=== PATIENT | female | born 1935 | race Caucasian/White ===

== ENCOUNTER → 2023-08-28 07:30 | Day surgery (SDC) | payer MEDICARE, OTHER, SELFPAY ==
[2023-08-28 08:05] VITALS: BMI 29.9
--- NOTE | 2023-08-28 08:41 | ITS.CL.CARDI ---
[facility] - Cardioversion
Cardioversion
Procedure Report:
Date of Procedure:
Procedure: Cardioversion
Indication: Symptomatic atrial fibrillation
Performing Physician: Donovan Santoyo MD
Technique: The patient was brought to the holding area. Signed informed consent was obtained. A time out was called and performed. The patient was anesthetized by the anesthesia service. Anticoagulation status was reviewed and appropriate. R2 pads
were placed anteriorly and posteriorly. A 200 J synchronized biphasic shock restored normal sinus rhythm without significant bradycardia. There were no complications.
Conclusion: Uncomplicated cardioversion from atrial fibrillation to sinus rhythm.
Recommendation: Routine post cardioversion care. Continue longterm anticoagulation.
== END ==
LOC: CATH 07:30
PROVIDERS: ATTENDING PHYSICIAN Internal Medicine Cardiovascular Disease; FAMILY PHYSICIAN Family Medicine; OTHER PHYSICIAN Internal Medicine Cardiovascular Disease
DX: I48.91 Unspecified atrial fibrillation (principal); I48.4 Atypical atrial flutter; I10 Essential (primary) hypertension; E78.00 Pure hypercholesterolemia, unspecified; I34.0 Nonrheumatic mitral (valve) insufficiency; Z87.891 Personal history of nicotine dependence; Z79.01 Long term (current) use of anticoagulants
CPT/HCPCS: 92960; 93005

== ENCOUNTER → 2023-10-22 14:49 | Outpatient (REF) | payer MEDICARE, OTHER, SELFPAY | LOC: HWRCS 14:49 | PROVIDERS: ATTENDING PHYSICIAN Internal Medicine Cardiovascular Disease; FAMILY PHYSICIAN Family Medicine | DX: I48.91 Unspecified atrial fibrillation (principal) | CPT/HCPCS: 93306 ==

== ENCOUNTER → 2023-12-03 09:28 | Day surgery (SDC) | payer MEDICARE, OTHER, SELFPAY ==
[2023-12-03 10:52] VITALS: BMI 30.7
--- NOTE | 2023-12-03 11:23 | ITS.CL.CARDI ---
Addendum entered and electronically signed by Eduardo Chen MD 12/03/23 15:47:
Spoke with Dr. Antunez and patient after attempted cardioversion. She had sinus rhythm last for a few minutes then recur. As such we will plan stop tikosyn and increase metoprolol to 100mg am/50mg pm and have her back to the office to discuss
initiation of amiodarone after tikosyn washout and subsequent cardioversion. Alernative could be a pace and ablate strategy if amiodarone/cv does not work. Our office will call in the new dose of metoprolol and arrange an office visit.
Original Note:
Reception - Cardioversion
Cardioversion
Procedure Report:
Date of Procedure: 12/03/2023
Procedure: Cardioversion.
Indication: Symptomatic atrial fibrillation.
Performing Physician: Patsy Antunez MD
Technique: The patient was brought to the holding area. Signed informed consent was obtained. A time out was called and performed. The patient was sedated by a member of the anesthesia service. Anticoagulation status was reviewed and was
appropriate. R-2 pads were placed anteriorly and posteriorly. A 200 J synchronized biphasic shock restored normal sinus rhythm without significant bradycardia. There were no complications.
Conclusion: Uncomplicated cardioversion from atrial fibrillation to sinus rhythm.
Recommendation: Routine post cardioversion care. Continue mcc anticoagulation.
cc: Dr Eduardo Chen
== END ==
LOC: CATH 09:28
PROVIDERS: ATTENDING PHYSICIAN Internal Medicine Cardiovascular Disease; FAMILY PHYSICIAN Family Medicine
DX: I48.91 Unspecified atrial fibrillation (principal); Z79.01 Long term (current) use of anticoagulants; I48.4 Atypical atrial flutter; I35.0 Nonrheumatic aortic (valve) stenosis
CPT/HCPCS: 92960; 93005

== ENCOUNTER → 2024-01-13 07:05 | Day surgery (SDC) | payer MEDICARE, OTHER, SELFPAY ==
[2024-01-13 08:05] VITALS: BMI 30.7
--- NOTE | 2024-01-13 09:09 | ITS.CL.CARDI ---
[facility] - Cardioversion
Cardioversion
Procedure Report:
Procedure: Direct current electrical cardioversion
Pre-operative diagnosis: Persistent atrial fibrillation
Post-operative diagnosis: Persistent atrial fibrillation status post DC cardioversion to sinus rhythm
Anesthesia: MAC
Attending Physician: Jose Hernandez MD
Procedure Description: The patient was brought to the electrophysiology laboratory in the fasting state. Adherence to anticoagulation regimen was confirmed. Informed consent was obtained from the patient prior to the start of the procedure.
Electrodes were placed on the patient and connected to an external defibrillator. Monitoring of blood pressure, ECG tracings, and pulse oximetry was initiated. The pads were applied to the patient in the anterior and posterior positions. The patient
was sedated by the anesthesiologist. A 200 joule biphasic synchronized shock was delivered to the patient under MAC anesthesia. Sinus rhythm was successfully restored. The patient recovered uneventfully from MAC anesthesia. There were no immediate
post-procedure complications. The patient left the lab in good condition. The attending physician was present throughout the entire procedure.
Impression: Successful direct current cardioversion with spiritism of sinus rhythm after one 200 joule biphasic synchronized shock.
== END ==
LOC: CATH 07:05
PROVIDERS: ATTENDING PHYSICIAN Internal Medicine Cardiovascular Disease; FAMILY PHYSICIAN Family Medicine; OTHER PHYSICIAN Internal Medicine Cardiovascular Disease
DX: I48.19 Other persistent atrial fibrillation (principal); I48.4 Atypical atrial flutter; Z79.899 Other long term (current) drug therapy; I10 Essential (primary) hypertension; E78.00 Pure hypercholesterolemia, unspecified; J43.9 Emphysema, unspecified; Z87.891 Personal history of nicotine dependence
CPT/HCPCS: 92960; 93005

== ENCOUNTER 2024-01-14 15:46 | Inpatient (IN) | payer MEDICARE, OTHER, SELFPAY ==
[2024-01-14] VITALS (17 sets, daily range): BP systolic 115–149; BP diastolic 63–94; PULSE 2–60; BMI 18.7
[2024-01-14 11:49] LABS: % Basophils 0.4 % (0-2); % Eosinophils 0.6 % (0-6); % Immature Granulocytes 0.4 % (0-0.5); % Lymphocytes 9.8 % (20.5-51.1); % Monocytes 10.3 % (1.7-9.3); % Neutrophils 78.5 % (42.2-75.2); Absolute Eosinophils 0.1 10^3/uL (0-0.7); Absolute Monocytes 1.1 10^3/uL (0.1-0.6); Absolute Neutrophils 8.3 10^3/uL (1.4-6.5); Hematocrit 41.2 % (37.0-47.0); Mean Corp Hgb Conc. 31.6 g/dL (33.0-37.0); Mean Corpuscular Hgb 32.8 pg (27.0-31.0); Mean Platelet Volume 10.8 fL (7.4-10.4); Nucleated Red Blood Cells % 0 %; Platelet Count 144 10^3/uL (130-400); Red Blood Cell Count 3.96 10^6/uL (4.20-5.40); Red Cell Dist. Width 13.5 % (11.5-14.5); White Blood Cell Count 10.5 10^3/uL (4.8-10.8)
--- NOTE | 2024-01-14 11:53 | ED.GENMED ---
History of Present Illness
General
Chief Complaint: Breathing Problem
Time Seen by Provider: 01/14/24 11:28
History of Present Illness
History of Present Illness:
Patient is a 88-year-old woman with history of ILD, A-fib on anticoagulation, hypertension, hyperlipidemia, lower extremity edema presenting to the emergency department shortness of breath. Patient states that yesterday she had a routine
cardioversion which went well. Last night she had significant orthopnea that worsened this morning. She is having a hard time breathing. She is unsure if she has history of heart failure but is compliant with Lasix. She denies any chest pain.
No fevers or chills. No cough. No nausea no vomiting. No back pain. She does not feel lightheaded or dizzy. Per chart review she did have an echo in September that did show a normal EF.
Past History
Past History
ED Past Medical History: Arrthythmia (Atrial fib), HTN, Hypercholesterolemia and Other (Arthritis)
ED Past Surgical History: Cardiac (Cardioversion) and Orthopedic (José knee replacements. José Hip replacements. Lumbar spine fusion)
Social History
Tobacco: Former smoker
Alcohol: Daily
Drug: None
Personal:
Living: with family
Employment: Retired
Family History
Family History: Other (Noncontributory)
Phy Exam
Physical Exam
Physical Exam:
General: Moderate respiratory distress
HEENT: Moist oral mucosa, extraocular movements intact
Respiratory: Moderate respiratory distress, tachypneic, crackles in all lung childers
Cardio: Regular rate and rhythm
Abdomen: Soft nondistended
Extremities: Bilateral lower extremity edema, palpable distal pulses bilaterally
Scores
Heart Failure Risk
Heart Failure Risk Score: Yes
History of Stroke or TIA: No
History of intubation for respiratory distress: No
Heart rate on ED arrival >/= 110: No
SaO2 <90% on arrival on room air: Yes
HR >/=110 during 3min walk test (or too ill to perform test): Yes
ECG has acute ischemic changes: No
Urea >/=12mmol/L (BUN 33.6mg/dL): Yes
Serum CO2>/=35mmol/L: Yes
Troponin I or T elevated to SD Level (0.4mg/dL): No
NT-proBNP >/=5,000ng/L (5,000pg/ml): No
HF Risk Score: 6
Admission Status: VERY HIGH RISK 55.3% Consider admission to hospital
Course
Orders/Labs/Results
Orders:
Orders
01/14/24
Electrocardiogram (*1) Stat
Reason for Study: Chest Pain
Comment: DONE
01/14/24 11:17
EKG [Electrocardiogram (*1)] Urgent
Reason for Study: Shortness of Breath
EKG- Treatment ONCE
01/14/24 11:37
Cardiac Monitoring- Treatment ONCE
EKG- Treatment ONCE
IV Insert/Care/Rem.- Treatment PRN
O2 Therapy [RESP] Urgent
Titrate/Wean O2 to maintain O2 sat greater than (%): 90
Special Instructions: Maintain sats >/=90%
Pulse Ox/spot Check [RESP] Urgent
Quantity: 1
Special Instructions: ON ROOM AIR
01/14/24 11:38
Portable Chest Xray [CR Chest Portable - 1 View] Urgent
Comment:
Reason For Exam: sob
Reason Study Needs to be Portable: Unable to Transport
01/14/24 11:41
Basic Metabolic Panel Urgent
Complete Blood Count/With Diff Urgent
Pro-BNP [NT-proBNP] Urgent
Troponin I Urgent
01/14/24 11:47
Venous Blood Gas Urgent
%Oxygen/Room Air: 2 liters nc
01/14/24 12:10
Ipratropium/Albuterol Sulfate [Duoneb] 3 ml .ROUTE .STK-MED ONE
01/14/24 12:20
Ipratropium/Albuterol Sulfate [Duoneb] 3 ml INH R NOW ONE
01/14/24 12:21
Bipap [RESP] Stat
Patient to use own unit?: No
Inspiratory Pressure (cm H2O): 12
Expiratory Pressure (cm H2O): 5
Oxygen Liter Flow: 5
01/14/24 12:44
Add On- LAB Urgent
Tests Added?: magnesium
01/14/24 12:54
Venous Blood Gas Urgent
%Oxygen/Room Air: 5L Bipap
01/14/24 13:14
Magnesium Urgent
Comment: CAN NOT BE ADDED ON DUE TO HEMOLYSIS
Abnormal Lab Results
01/14/24 01/14/24 01/14/24
11:41 11:47 12:54
RBC 3.96 L 10^6/uL
(4.20-5.40)
MCV 104.0 H fL
(81.0-99.0)
MCH 32.8 H pg
(27.0-31.0)
MCHC 31.6 L g/dL
(33.0-37.0)
MPV 10.8 H fL
(7.4-10.4)
Absolute Neuts (auto) 8.3 H 10^3/uL
(1.4-6.5)
Absolute Lymphs (auto) 1.0 L 10^3/uL
(1.2-3.4)
Absolute Monos (auto) 1.1 H 10^3/uL
(0.1-0.6)
Neutrophils % 78.5 H %
(42.2-75.2)
Lymphocytes % 9.8 L %
(20.5-51.1)
Monocytes % 10.3 H %
(1.7-9.3)
VBG pH 7.24 L 7.26 L
(7.32-7.43) (7.32-7.43)
VBG pCO2 81 H* mmHg 73 H* mmHg
(35-48) (35-48)
VBG pO2 60 H mmHg
(30-50)
VBG HCO3 34.7 H mmol/L 32.8 H mmol/L
(22-27) (22-27)
BUN 39 H mg/dl
(7-17)
Creatinine 1.1 H mg/dL
(0.6-1.0)
Glucose 140 H mg/dl
(70-99)
01/14/24 11:41
01/14/24 11:41
Vital Signs
Initial and Last Documented VS:
Initial Vital Signs
Temp Pulse Resp BP Pulse Ox
98.4 F 58 24 149/79 92
01/14/24 11:16 01/14/24 11:16 01/14/24 11:16 01/14/24 11:16 01/14/24 11:16
Last Documented Vital Signs
Temp Pulse Resp BP Pulse Ox
98.4 F 47 16 142/90 99
01/14/24 11:16 01/14/24 12:30 01/14/24 12:30 01/14/24 12:02 01/14/24 12:30
MDM/Problems Addressed
Differential Diagnosis Includes:
Patient is a 88-year-old woman with history of A-fib on anticoagulation who was cardioverted yesterday, lower extremity edema on Lasix presenting to the emergency department with shortness of breath that worsened today. Vitals here notable for
requiring nasal cannula. She is tachypneic. Exam does show crackles in all lung childers as well as bilateral lower extremity edema. Concern for new onset heart failure versus cardiac arrhythmia versus atypical ACS. History and exam not consistent
with PE or pneumonia. Bedside echo does show significant B-lines. EF is slightly reduced. Portable chest x-ray with significant congestion bilaterally. Will trial BiPAP. Patient will need admission.
*Critical Care Note
Total Time (30-74mins, 75-104mins- exclusive of procedures): Not Applicable
Update Note
Update Note:
On reevaluation patient resting comfortably on BiPAP. She is pulling great tidal volumes. She does appear more comfortable. Blood work does show elevated BNP. Initial VBG does show hypercarbia as well as respiratory acidosis. Given the history
of possible COPD we will also trial DuoNeb.
Nursing notified of patient's heart rate was in the 30s. Repeat EKG does show sinus bradycardia with first-degree AV block. Blood pressure is normal she is mentating well we will continue to monitor.
On reevaluation patient is on BiPAP. She is able to speak in full sentences and looks much better from when she came in. Repeat VBG does show slight improvement. Discussed with hospitalist who accepted patient for admission.
ED Attending Note
-
Portions of this chart may have been created with voice recognition software.� Occasional wrong word or��sound alike� substitutions may have occurred due to the inherent limitations of voice recognition software.
Discharge Plan
Departure
Patient Disposition: Admit
Date of Disposition: 01/14/24
Time of Disposition: 13:36
Admit to doctor: adeel
Presentation/result/management discussed w/ accepting MD/DO: Hospitalist
Discharge Problem:
Pulmonary edema
Prescriptions:
No Action
simvastatin 20 MG tablet
20 mg PO QPM
losartan 100 MG tablet
100 mg PO DAILY
famotidine 20 MG tablet
20 mg PO QPM
Eliquis 5 MG tablet
5 mg PO BID
buprenorphine [Butrans] 20 MCG/HR patch weekly
1 patch topical SA
Patient Comments:
01/14/24 currently wearing
cetirizine 10 MG tablet
10 mg PO HS
venlafaxine 37.5 mg Capsule,Extended Release 24hr
37.5 mg PO DAILY
furosemide [Lasix] 20 mg Tablet
20 mg PO DAILY
PreserVision AREDS-2 250-90-40-1 mg Capsule
1 tab PO DAILY
magnesium oxide 500 MG tablet
500 mg PO DAILY
amiodarone 200 mg Tablet
200 mg PO DAILY
hydrocodone-acetaminophen 10-325 mg Tablet
1 tab PO Q4HPRN PRN (Reason: severe pain)
magnesium hydroxide [Milk of Magnesia] 400 mg/5 mL Suspension
2,400 mg PO DAILYPRN PRN (Reason: constipation)
Incruse Ellipta 62.5 mcg/actuation Blister With Device
1 inh INHALATION R DAILY
metoprolol succinate [Toprol XL] 50 mg Tablet Extended Release 24 Hr
100 mg PO DAILY
Referrals:
Shayy Jon DO [Family Provider] -
Interventions
Interventions:
*Risk Screen - Suicide Last Done: 01/14/24 11:29
*General Assessment Last Done: 01/14/24 11:29
*Neglect/Abuse Screening Last Done: 01/14/24 11:29
*ED COVID-19 Vaccine History Last Done: 01/14/24 11:29
ED- Cardiac Assessment Last Done: 01/14/24 11:51
ED- Pulmonary Assessment Last Done: 01/14/24 11:51
Discharge Date and Time
Print Language: PERSIAN
[2024-01-14 11:58] LABS: Venous Blood Gas B.E. 4.5 mmol/L (-4 to +4); Venous Blood Gas HCO3 34.7 mmol/L (22-27); Venous Blood Gas O2 Sat % 66.4 %; Venous Blood Gas pH 7.24 (7.32-7.43); Venous Blood Gas pO2 39 mmHg (30-50)
[2024-01-14 12:01] LABS: Venous Blood Gas pCO2 81 mmHg (35-48)
[2024-01-14 12:07] LABS: Blood Urea Nitrogen 39 mg/dl (7-17); Calcium 9.5 mg/dl (8.4-10.2); Carbon Dioxide 29 mmol/L (22-30); Chloride 99 mmol/L (98-107); Estimated Creatinine Clearance 29 ml/min; Glucose 140 mg/dl (70-99); Sodium 135 mmol/L (135-145); eGFR 48.94
[2024-01-14 12:12] LABS: NT-proBNP 4750 pg/ml; Troponin I < 0.012 ng/ml
[2024-01-14] MEDS: DUONEB 3 ML INH (12:20)
--- NOTE | 2024-01-14 12:32 | PHANOTE ---
med rec note- spoke to spouse for patient about Toprol xl and having two different rx with two different directions on file. he stated that this coming Friday patient has an appointment for cardiology to discus changing patient medication. so he
picked up both just incase his insurance would give him a hard time about filling her medication after Friday appointment. yesterday patient here at [facility] for cardio version and toprol xl changed to just toprol xl 100mg daily.
[2024-01-14 13:09] LABS: Venous Blood Gas B.E. 3.6 mmol/L (-4 to +4); Venous Blood Gas HCO3 32.8 mmol/L (22-27); Venous Blood Gas O2 Sat % 91.3 %; Venous Blood Gas pH 7.26 (7.32-7.43); Venous Blood Gas pO2 60 mmHg (30-50)
[2024-01-14 13:12] LABS: Venous Blood Gas pCO2 73 mmHg (35-48)
[2024-01-14 13:54] LABS: Magnesium 3.1 mg/dl (1.6-2.3)
--- NOTE | 2024-01-14 14:02 | W.PN.UPDATE ---
Addendum entered and electronically signed by Panchito Berrios MD 01/14/24 15:46:
After getting more history patient states that her symptoms have been going on for the past 1 month. Amiodarone was also started a month ago. Patient was also describing that she has had a runny nose for the past couple of weeks.. Also coughing
noted during drinking water in the ER.
She has not felt better after cardioversion yesterday.
Patient also is compliant with CPAP at home
I will give 1 dose of Lasix now and reevaluate to see if symptoms are better given elevated creatinine.
May need to repeat echo
Exam is not consistent with fluid overload. No JVD or pedal edema noted.
She does have rales bilaterally.
Will request pulmonary consultation along with cardiology.
Slightly elevated BNP noted.
CO2 retention noted however patient has been compliant with CPAP
Original Note:
Update Note
Progress Note Update
88-year-old female with shortness of breath. patient had a routine cardioversion yesterday which went well. Last night had orthopnea and also difficulty breathing.
I personally performed a history and physical exam of the patient and discussed management with the resident. I reviewed the resident's note and agree with the documented findings and plan of care HPI/CC except chnages in documentation.
CVS: S1-S2 normal
Chest: Rales bilaterally.
Abdomen: Soft, NT / Bowel sounds present
Extremities: No edema, normal pulses
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
# Acute hypoxic respiratory failure
Chest x-ray with pulmonary edema
Likely reason is CHF-check echo to identify the type
Admit
IV diuresis
Trend troponins to rule out ischemia
Check echo
Chest x-ray reviewed by me-cephalization consistent with pulmonary edema
Echo 10/22/2023-preserved EF 60 to 65%, severely dilated LA, mildly dilated RA, moderate MR and TR and pulmonary artery pressure 45 mmHg. Mild aortic stenosis
# Paroxysmal atrial fibrillation /atypical flutter
History of multiple ablations
Was on Tikosyn in the past-currently on amiodarone
Cardioversion multiple times last - 01/13/2024
Continue amiodarone 200 mg daily, Eliquis metoprolol and milligram
# Aortic stenosis/moderate MR
# Hypertension-continue losartan, metoprolol 100 mg daily
# ELIZABETH- Watch with diuresis
# Sleep apnea
# Chronic bronchitis-continue Incruse Ellipta or equivalent
# Hyperlipidemia-continue statin
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
# Depression-continue Effexor
# Kx-[id number] in 1975
# DVT prophylaxis-Eliquis
# CODE STATUS-
--- NOTE | 2024-01-14 15:29 | CON.CAR ---
Addendum entered and electronically signed by Jose Hernandez MD 01/14/24 17:08:
I saw and examined the patient.
The Clinical Orthoptist's note was reviewed and I agree with the note.
Comment: Briefly, 88-year-old woman past medical history of persistent atrial fibrillation who underwent direct-current cardioversion on 01/13/2024 and is now presenting with dyspnea, evidence of pulmonary edema on chest x-ray and elevated proBNP all
consistent with acute decompensated heart failure
Currently on noninvasive positive pressure ventilation, would wean as able
Recommend IV Lasix 40 mg twice daily to improve her respiratory status
Monitor renal function, electrolytes and daily weights
Repeat transthoracic echocardiogram
In regards to her atrial fibrillation, she is currently maintaining sinus rhythm
Continue amiodarone
She is bradycardic currently, we will decrease her metoprolol dose
Continue Eliquis for cardioembolic prophylaxis
Original Note:
Consultation
Consultation Request
Date/Time Consultation Requested: 01/14/24
Date/Time Consultation Performed: 01/14/24
Requesting Provider: Dr. Berrios
Performing Provider: Maia Shah PA-C for Dr. Hernandez
Reason for Consultation: Acute HF, recent CV
Medical History
-
Chief Complaint: SOB
History of Present Illness:
Patient is an 88-year-old female with past medical history of paroxysmal atrial fibrillation status post PVI x 3, subsequent Tikosyn load with failed efficacy, started on amiodarone 12/11/2023. She underwent successful cardioversion 01/13/2024. She
reports in the days leading up to her cardioversion she began noticing fatigue and increasing nasal drainage. She reports post cardioversion she has had worsening shortness of breath. She was fine wearing her CPAP overnight. This morning she
states her shortness of breath got so bad, she felt as though she 'was going to '. She reported some dizziness associated with this. She denied chest pain, palpitations, fevers or chills, lower extremity edema. proBNP 4500. Chest x-ray with
evidence of acute pulmonary edema. Cardiology consulted for evaluation. She takes p.o. Lasix 20 mg on a as needed basis only as an outpatient.
PMH:
Chronic HFpEF
Paroxysmal Afib
s/p PVI 08/2011
s/p PVI ant typical flutter ablation 12/2011
s/p PVI 10/18/19
tikosyn load 11/2020
s/p failed CV 12/03/23, tikosyn stopped
started on amiodarone 12/11/23
s/p CV 01/13/24
Chronic Eliquis OAC
HTN
Hyperlipidemia
MARIELA on CPAP
Emphysema/ILD
Mild MR and mild by echo 11/24/18
Significant arthritis
Thyroid nodule
Past Medical History
Past Medical History: Other (in HPI)
Past Surgical History: Cardiac (PVI 08/2011, PVI with focal reisolation and CTI 12/2011, PVI 10/18/19) and Orthopedic
Social History
Tobacco: Former Smoker
Alcohol: None
Drug: None
Personal:
Living: With Family
Family History
Family History: Other (AAA, emphysema)
Allergies / Home Medications
Allergy/AdvReac Type Severity Reaction Status Date / Time
No Known Allergies Allergy Verified 01/13/24 07:43
�Medication �Instructions �Recorded �Confirmed �Type
losartan 100 mg tablet 100 mg PO DAILY Blood pressure 07/25/14 01/14/24 History
simvastatin 20 mg tablet 20 mg PO QPM High cholesterol 07/25/14 01/14/24 History
apixaban 5 mg tablet (Eliquis) 5 mg PO BID Blood clot 01/18/19 01/14/24 History
prevention/tx
famotidine 20 mg tablet 20 mg PO QPM Gastrointestinal issue 01/18/19 01/14/24 History
buprenorphine 20 mcg/hour weekly 1 patch topical SA Pain 10/18/19 01/14/24 History
transdermal patch (Butrans)
cetirizine 10 mg tablet 10 mg PO HS Allergies 12/12/20 01/14/24 History
furosemide 20 mg tablet (Lasix) 20 mg PO DAILY Fluid 08/28/23 01/14/24 History
Retention/Swelling
magnesium oxide 500 mg PO DAILY Electrolyte 08/28/23 01/14/24 History
Repletion
venlafaxine 37.5 mg 37.5 mg PO DAILY Mental Health 08/28/23 01/14/24 History
capsule,extended release 24 hr
vit C 250 mg-vit E 90 mg-zinc 40 1 tab PO DAILY Supplement 08/28/23 01/14/24 History
mg-copper 1 [id number]
capsule (PreserVision AREDS-2)
amiodarone 200 mg tablet 200 mg PO DAILY Arrhythmia 01/14/24 01/14/24 History
hydrocodone 10 mg-acetaminophen 1 tab PO Q4HPRN PRN severe pain 01/14/24 01/14/24 History
325 mg tablet
magnesium hydroxide 400 mg/5 mL 2,400 mg PO DAILYPRN PRN 01/14/24 01/14/24 History
oral suspension (Milk of Magnesia) constipation
metoprolol succinate 50 mg 100 mg PO DAILY Arrhythmia 01/14/24 01/14/24 History
tablet,extended release 24 hr
(Toprol XL)
umeclidinium 62.5 mcg/actuation 1 inh inhalation R DAILY 01/14/24 01/14/24 History
blister powder for inhalation Lung/Breathing Issues
(Incruse Ellipta)
Review of Systems
-
History Source: Patient and Family
All other systems: Negative unless noted
Physical Exam
Vital Signs
Temp Pulse Resp BP Pulse Ox
98.4 F 51 13 136/83 98
01/14/24 11:16 01/14/24 15:10 01/14/24 15:00 01/14/24 14:31 01/14/24 15:00
GEN: No distress, awake, alert and oriented x3. on BIPAP
HEENT: EOMI, MMM
LUNGS: Rales at B/L bases
CV: Reg and luzma, S1/S2, 1/6 syst LSB
ABD: soft, BS+, NT, ND
EXT: No clubbing, cyanosis, lesions or edema B/L
NEURO: Gross non-focal
SKIN: Warm, dry and pink. No rash
Lab Results
01/14/24 11:41
01/14/24 11:41
Troponin I < 0.012 ng/ml 01/14/24 11:41
Gai-X-Sayfztbqvng Pept 4750 pg/ml 01/14/24 11:41
Impression / Plan
-
PCP: Dr. Shayy Jon
Cardiology: Dr. Chen
Impression:
Presentation with SOB
Acute hypoxic respiratory failure
Acute HFpEF
Paroxysmal Afib
s/p PVI 08/2011
s/p PVI ant typical flutter ablation 12/2011
s/p PVI 10/18/19
tikosyn load 11/2020
s/p failed CV 12/03/23, tikosyn stopped
started on amiodarone 12/11/23
s/p CV 01/13/24
Chronic Eliquis OAC
HTN
Hyperlipidemia
MARIELA on CPAP
Emphysema/ILD
Mod MR and mild by echo 10/2023
Significant arthritis
Thyroid nodule
Echo 11/24/18: EF 55-60%, mild MR, severely dilated LA, mild peak/mean 24/15 with MIKIE 20 cm sq
ECHO 10/22/2023: EF 60 to 65%, moderate MR, mild with peak/mean gradients 30/17 mmHg, moderate TR, PAP 45 mmHg
Plan:
-Patient presents with shortness of breath and evidence of acute heart failure post cardioversion 01/13/2024. She is presently requiring BiPAP.
-Was given 20mg IV lasix in ER. Would recommend diuresis with IV Lasix 40 mg twice daily, and wean off BiPAP and supplemental oxygen as able
-last echo from 10/2023 with results as above, check follow up study
-CHF education
-In sinus bradycardic rhythm. Would continue amiodarone 200 mg daily. Will decrease outpatient Toprol dose from 100 mg daily to 50 mg daily and follow heart rates.
-Continue Eliquis
-Discussed with patient and family at bedside
Data Reviewed
-
EKG: Tracing Personally Visualized and interpreted
Radiology: Report Reviewed by me
Medical Tests (Nuc Med, Echo etc): Report Reviewed by me
Labs: Labs Reviewed by me
Old Records: Reviewed
[2024-01-14] MEDS: LASIX 20 MG IV (15:40)
--- NOTE | 2024-01-14 15:57 | CON.PUL ---
Consultation
Consultation Request
Date/Time Consultation Requested: 01/13
Date/Time Consultation Performed: 01/13
Reason for Consultation: Shortness of breath, abnormal imaging
Medical History
-
History of Present Illness:
History obtained from the chart, hospital records, patient, family at bedside. Patient is a pleasant 88-year-old female with history of chronic atrial fibrillation with multiple cardioversions over the past 6 months, recently started on amiodarone
early November along with increased beta-bharti therapy. She also has a history of sleep apnea compliant with CPAP therapy, history of interstitial lung disease, emphysema with baseline TLC 49%, DLCO 32%, who presents with progressive shortness of
breath, fatigue over the last month. She seems to correlate with amiodarone therapy but is not sure. She was seen in our office 01/06/2024 at which time it was confirmed her CPAP therapy was adequate. Chest x-ray was requested at that time, planned
cardioversion completed 01/12 without issues, remains in sinus rhythm. Because of increased fatigue and shortness of breath this morning, she brought herself into [facility]. She describes shortness of breath but it appears to have been
more fatigued than anything else. She denies any falls, hemoptysis, change in weight, fevers. Upon arrival to [facility], afebrile, pulse 58, breathing at 24, blood pressure 149/79, 92%. Chest x-ray suggested bilateral interstitial
changes, exam showed crackles throughout. Per my review this is worsened compared to her visit with me 01/06/2024. VBG noted. We are asked to help from pulmonary standpoint. Since being evaluated and treated in the ED, she is improved. Her
confirmed that she is much better than this morning.
.
PMH: Hypertension, hyperlipidemia, atrial fibrillation with multiple cardioversions started on amiodarone December 2023, emphysema/interstitial disease, macular degeneration, sleep apnea on CPAP therapy, history of thyroid nodule. Multiple ablation,
cardioversion in the past, bilateral hip replacement/revision, bilateral knee replacement, spinal fusion
Past Medical History
Past Medical History: None (See above)
Past Surgical History: None ( see above)
Social History
Tobacco: Former Smoker (Quit 1975)
Alcohol: None
Drug: None
Personal:
Living: With Family
Employment: Retired
Family History
Family History: Other (Father from AAA 76 years old, mother from giving age 37. Sister on oxygen therapy with severe emphysema. 4 children healthy)
Allergies / Home Medications
Allergies
Allergy/AdvReac Type Severity Reaction Status Date / Time
No Known Allergies Allergy Verified 01/13/24 07:43
Home Medications
�Medication �Instructions �Recorded �Confirmed �Last Taken �Type
losartan 100 mg tablet 100 mg PO DAILY Blood pressure 07/25/14 01/14/24 01/13/24 05:30 History
simvastatin 20 mg tablet 20 mg PO QPM High cholesterol 07/25/14 01/14/24 01/13/24 05:30 History
apixaban 5 mg tablet (Eliquis) 5 mg PO BID Blood clot 01/18/19 01/14/24 01/14/24 History
prevention/tx
famotidine 20 mg tablet 20 mg PO QPM Gastrointestinal issue 01/18/19 01/14/24 01/12/24 20:00 History
buprenorphine 20 mcg/hour weekly 1 patch topical SA Pain 10/18/19 01/14/24 01/10/24 10:00 History
transdermal patch (Butrans)
cetirizine 10 mg tablet 10 mg PO HS Allergies 12/12/20 01/14/24 01/12/24 20:00 History
furosemide 20 mg tablet (Lasix) 20 mg PO DAILY Fluid 08/28/23 01/14/24 01/12/24 08:00 History
Retention/Swelling
magnesium oxide 500 mg PO DAILY Electrolyte 08/28/23 01/14/24 01/13/24 05:30 History
Repletion
venlafaxine 37.5 mg 37.5 mg PO DAILY Mental Health 08/28/23 01/14/24 01/13/24 04:00 History
capsule,extended release 24 hr
vit C 250 mg-vit E 90 mg-zinc 40 1 tab PO DAILY Supplement 08/28/23 01/14/24 01/13/24 05:30 History
mg-copper 1 [id number]
capsule (PreserVision AREDS-2)
amiodarone 200 mg tablet 200 mg PO DAILY Arrhythmia 01/14/24 01/14/24 Unknown History
hydrocodone 10 mg-acetaminophen 1 tab PO Q4HPRN PRN severe pain 01/14/24 01/14/24 Unknown History
325 mg tablet
magnesium hydroxide 400 mg/5 mL 2,400 mg PO DAILYPRN PRN 01/14/24 01/14/24 01/13/24 History
oral suspension (Milk of Magnesia) constipation
metoprolol succinate 50 mg 100 mg PO DAILY Arrhythmia 01/14/24 01/14/24 01/14/24 History
tablet,extended release 24 hr
(Toprol XL)
umeclidinium 62.5 mcg/actuation 1 inh inhalation R DAILY 01/14/24 01/14/24 Unknown History
blister powder for inhalation Lung/Breathing Issues
(Incruse Ellipta)
Review of Systems
-
All other systems: Negative unless noted
Vitals / Labs / Diagnostic Testing
Vital Signs
Temp Pulse Resp BP Pulse Ox
98.4 F 48 13 138/76 98
01/14/24 11:16 01/14/24 15:40 01/14/24 15:00 01/14/24 15:40 01/14/24 15:00
Lab Data
01/14/24 11:41
01/14/24 11:41
Diagnostic Testing:
Physical Exam
-
HEENT: Normocephalic and Anicteric
Cardiovascular: S1/S2, Regular Rhythm (Bradycardic), Murmur (2/6 systolic murmur), Rub (m) and Peripheral Edema (tr edema, no calf tenderness)
Respiratory: Wheeze (m), Rales (Bilateral crackles), Rhonchi (n), Accessory Resp Muscle Use (Mild use of accessory muscles) and Other (Few expiratory squeaks)
GI: Soft, Non Distended and Non Tender
Neurology: Awake, Alert and No Motor Deficits (Able to sit up without assistance)
Skin: Good Color
General: Comfortable
Assessment
-
88-year-old female with complex medical history, atrial fibrillation with multiple cardioversions/history of ablation in the past, COPD/interstitial lung disease, sleep apnea on CPAP therapy, started on amiodarone early December 2023 with progressive
shortness of breath, fatigue. Was noted to have increased crackles on exam 01/05 as outpatient. Underwent cardioversion successfully 01/12, now presents with worsening shortness of breath, persistent crackles, episodic bradycardia heart rate down in
the 30s. We are asked to help from pulmonary standpoint 01/14/2024
Subjective dyspnea, progressive
92% room air
Suspected hypercapnia based on VBG
On BiPAP in ED
Night sweats, fatigue
Bilateral interstitial infiltrates
Infectious versus pulmonary edema versus inflammatory
Moderate MR, mild aortic stenosis 1.6 cm
PA pressure 45
Normal biventricular function
Chronic hypoxia on home oxygen
88% as outpatient
Conditions present prior to admission
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
Hypertension/hyperlipidemia
COPD
Emphysema per CT chest
FEV1 0.93/52%, TLC 3.41/59%, DLCO 32%
Sleep apnea severe, index 52.7, desaturation micaela 82%
On auto CPAP, remains compliant
Distant tobacco history, quit 1975
Plan/recommendations
Patient with complex medical history
Salient features include increased crackles on exam over the past month, increased interstitial changes per chest x-ray, amiodarone therapy x 1 month
Successful cardioversion 01/12, now with bradycardia heart rate 30s to 50s
Patient describes episode of night sweats this morning/diaphoresis
Hypercapnia suspected based on VBG but accuracy questionable
Moving forward
Maintain on BiPAP for now
Patient received 1 dose of Lasix
Concerned about an infectious process
Patient describes drenching sweats this morning, unclear if this was diaphoresis in the setting of bradycardia versus an infectious process
Check COVID
Empiric antibiotic for possible infectious process
Check TSH
Check ABG
Patient on amiodarone, beta-bharti therapy. This may need to be modified. Will defer to cardiology
Patient has had multiple cardioversions, unsuccessful. This is the first successful cardioversion in the setting of amiodarone therapy
Although amiodarone may be causing her interstitial process, this is a diagnosis of exclusion
Cardiology is following
Defer need for echocardiogram to cardiology. Most recent echocardiogram October 2023 with normal biventricular function, PA pressure 45, aortic stenosis/mitral regurgitation
Will order CT chest without contrast, high-resolution images 01/14
Patient does appear to be more fatigued than typical. Will need to consider sepsis, infectious process
Aspiration precautions
Head of bed elevated
Reviewed with patient, family at bedside, primary service
Complex decision making process. Will follow
[2024-01-14 16:08] LABS: COVID-19 Antigen Negative (Negative)
--- NOTE | 2024-01-14 16:13 | HPS.HSE ---
Addendum entered and electronically signed by Panchito Berrios MD 01/14/24 18:19:
I personally performed a history and physical exam of the patient and discussed management with the resident. I reviewed the resident's note and agree with the documented findings and plan of care HPI/CC except for changes in documentation
Seen and examined the patient with the resident
Patient's daughter and patient's were at bedside
I have also discussed the case with pulmonary
CVS: S1-S2 bradycardia, sm at apex and aa
Chest: Rales bilaterally.
Abdomen: Soft, NT , Bowel sounds present
Extremities: No edema, normal pulses
INSECTICIDE MAKER: Non focal exam
# Acute hypoxic and hypercarbic respiratory failure
Continue BiPAP, repeat ABG ordered-Much better
Chest x-ray with pulmonary edema
Likely reason is CHF-check echo to identify the type
Other differentials such as infection, aspiration, amiodarone induced lung injury, or need to be ruled out.
IV diuresis will give 20 mg of Lasix IV now and follow creatinine in the morning before we get more.
Trend troponins to rule out ischemia
Check repeat echo to make sure EF did not go down.
Chest x-ray reviewed by me-cephalization consistent with pulmonary edema
Echo 10/22/2023-preserved EF 60 to 65%, severely dilated LA, mildly dilated RA, moderate MR and TR and pulmonary artery pressure 45 mmHg. Mild aortic stenosis
# Paroxysmal atrial fibrillation /atypical flutter
Bradycardia noted now-in sinus rhythm
History of multiple ablations
Was on Tikosyn in the past-currently on amiodarone
Cardioversion multiple times last - 01/13/2024
Continue amiodarone 200 mg daily, Eliquis and lowered metoprolol
# Aortic stenosis/moderate MR
# Hypertension-continue losartan, metoprolol to be reduced
# ELIZABETH- Watch with diuresis
# Sleep apnea Compliant with CPAP
# Chronic bronchitis-continue Incruse Ellipta or equivalent
# Hyperlipidemia-continue statin
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
# Depression-continue Effexor
# [id number] in 1975
# DVT prophylaxis-Eliquis
# CODE STATUS- FUll CODE
Discussed with and daughter at bedside
Discussed with pulmonary
Time spent over 75 minutes
Original Note:
Family Physician
-
Family Physician: Shayy Jon
Chief Complaint
-
Shortness of breath
History of Present Illness
88-year-old female with past medical history of paroxysmal atrial fibrillation, interstitial lung disease, hypertension and MARIELA presents to the ED with shortness of breath. The patient has a history of PAF for which she has received multiple
cardioversions in the past. On December 02 she had a cardioversion which failed. Previously she was on Tikosyn for rate control. After failed cardioversion they planned to stop Tikosyn and increase metoprolol to 100 mg a.m./50 mg p.m. She was also
started on amiodarone. After starting the new medication, the patient felt increasingly worse. She sleeps with a wedge pillow up right with CPAP and 2 L of oxygen. When she wakes up in the mornings she would feel very fatigued and ' not herself,'
however by the end of the day she usually felt a lot better. Yesterday, the patient went in for another cardioversion and her heart rate went into sinus rhythm. Patient noted that she did not feel any better after cardioversion which is abnormal
because in the past after cardioversion she usually felt much better. The next morning she woke up incredibly fatigued, and short of breath to the point where she felt like she would pass out at which point she came into the ED. She denied any
chest pains, palpitations, cough, runny nose or sick contacts. She denies any history of CHF diagnosis. Her metoprolol dose was decreased to 100 mg daily which she took this morning along with Eliquis. Patient cannot remember whether she took her
other medication. Upon admission her oxygen levels were low and patient was put on BiPAP with 5 L of O2 at which point her oxygen saturations stabilized and patient felt much better. Patient was also bradycardic with a heart rate around the mid
40s. Patient was asked about Lasix medication and she states she was given Lasix as needed if she saw any swelling in her legs by her doctor, but she does not need to take it regularly.
Medical History
Past Medical History
Past Medical History: Reports Other (PAF, arthritis, hypertension, hyperlipidemia, sleep apnea, interstitial lung disease, moderate mitral regurgitation, thyroid nodule-biopsy benign)
Past Surgical History: Reports Other (Left knee revision, ambulation, cardioversion, bilateral hip replacement, bilateral knee replacement, spinal fusion, PVI)
Social History
Tobacco: Former Smoker (Quite >10 years ago)
Alcohol: Daily
Drug: None
Personal:
Living: With Family
Employment: Retired
Family History
Family History: Other (Father, AAA. Mother, while giving . Sister, emphysema)
Allergies / Home Medications
Allergies reflects when Allergies were last updated in [employer]
Home Medications with original date entered in [employer]
Allergy/Medication List:
Allergies
Allergy/AdvReac Type Severity Reaction Status Date / Time
No Known Allergies Allergy Verified 01/13/24 07:43
Home Medications
losartan 100 mg tablet 100 mg PO DAILY Blood pressure 07/25/14
simvastatin 20 mg tablet 20 mg PO QPM High cholesterol 07/25/14
apixaban 5 mg tablet (Eliquis) 5 mg PO BID Blood clot prevention/tx 01/18/19
famotidine 20 mg tablet 20 mg PO QPM Gastrointestinal issue 01/18/19
buprenorphine 20 mcg/hour weekly transdermal patch (Butrans) 1 patch topical SA Pain 10/18/19
cetirizine 10 mg tablet 10 mg PO HS Allergies 12/12/20
furosemide 20 mg tablet (Lasix) 20 mg PO DAILY Fluid Retention/Swelling 08/28/23
magnesium oxide 500 mg PO DAILY Electrolyte Repletion 08/28/23
venlafaxine 37.5 mg capsule,extended release 24 hr 37.5 mg PO DAILY Mental Health 08/28/23
vit C 250 mg-vit E 90 mg-zinc 40 mg-copper 1 [id number]-crybyy capsule (PreserVision AREDS-2) 1 tab PO DAILY Supplement 08/28/23
amiodarone 200 mg tablet 200 mg PO DAILY Arrhythmia 01/14/24
hydrocodone 10 mg-acetaminophen 325 mg tablet 1 tab PO Q4HPRN PRN severe pain 01/14/24
magnesium hydroxide 400 mg/5 mL oral suspension (Milk of Magnesia) 2,400 mg PO DAILYPRN PRN constipation 01/14/24
metoprolol succinate 50 mg tablet,extended release 24 hr (Toprol XL) 100 mg PO DAILY Arrhythmia 01/14/24
umeclidinium 62.5 mcg/actuation blister powder for inhalation (Incruse Ellipta) 1 inh inhalation R DAILY Lung/Breathing Issues 01/14/24
Review of Systems
-
History Source: Patient
A 12 point ROS was completed and negative except as noted: Yes
EENT: Reports No Symptoms
Respiratory: Reports Trouble Breathing
Cardiac: Reports No Symptoms
Abdomen/GI: Reports No Symptoms
: Reports No Symptoms
Musculoskeletal: Reports Joint Pain (history of arthritis)
Neurological: Reports No Symptoms
Psych: Reports No Symptoms
Physical Exam
Vital Signs
Vital Signs
Temp Pulse Resp BP Pulse Ox
98.4 F 48 14 131/72 97
01/14/24 11:16 01/14/24 16:00 01/14/24 16:00 01/14/24 16:00 01/14/24 16:00
Physical Exam
General: Respiratory Distress, Appears in Distress and Other (BiPap)
Respiratory: Crackles (Bilateral lower lobes)
Cardiac: S1/S2 and Bradycardia; No JVD
GI: Soft, Non Tender and Non Distended
Genito-urinary: Deferred by me
Musculoskeletal: No Edema
Skin: Warm and Dry
Neuro: AO x 3
Laboratory Results
-
01/14/24 11:41
01/14/24 11:41
Laboratory Results
Total Bilirubin Cancelled 01/14/24 11:41
AST Cancelled 01/14/24 11:41
ALT Cancelled 01/14/24 11:41
Alkaline Phosphatase Cancelled 01/14/24 11:41
Troponin I < 0.012 ng/ml 01/14/24 11:41
Impression/Plan
-
IMPRESSION: 88-year-old female with recent cardioversion for PAF in acute respiratory failure.
PLAN:
# Acute respiratory failure
Likely CHF exacerbation versus COPD exacerbation.
SOB, Bipap 5L to maintain O2 saturation
Chest x-ray shows slight increased pulmonary vasculature reflective of mild CHF or acute pulmonary edema.
BNP 4750
No JVD, no lower extremity edema
1 dose 20 mg Lasix IV given as patient does not appear in volume overload.
Admit to telemetry
Echo from -2023 showed EF 60 to 65%. Repeat echo
Keep on BiPAP
Duonebs
Covid swab
Pneumonia unlikely as WBC normal
Patient was previously given Lasix by manager distribution for leg swelling but no note of formal CHF diagnosis.
Cardiology and pulmonology consulted appreciated
# Bradycardia
Patient monitored heart rate at home for last few months because they were told by their manager distribution to not let it go into the 50s. Patient's heart rate has not been in the 50s over the last month. Low heart rate may be contributing to patient's
symptoms.
Hold metoprolol and amiodarone
# PAF
History of multiple ablations and cardioversions.
On Eliquis
Currently in sinus bradycardia
Patient was previously on amiodarone therapy prior to 2019 for rhythm controlled therapy for PAF. Will contact Dr. Chen regarding duration of amiodarone therapy. She was stopped then put on Tikosyn which she continued on until last month when
she was switched back to amiodarone.
#Elevated Cr
1.1 on admission baseline 0.7
Monitor
# Hypertension
Holding metoprolol to re-evaluate how patient is feeling after increase in heart rate
Adjust dose per cardiology recommendations
#Sleep apnea - compliant with her CPAP on 2L O2 at night
#ILD-She had severe emphysema on 2012 CT and noted to have the same ILD on CT in 2019. Pulmonology appreciated
# Arthritis -continue home pain management medications
# Hypercholesterolemia -continue simvastatin
# DVT-on Eliquis
#Regular diet
# Full code
[2024-01-14 16:54] LABS: HCO3 34.1 mmol/L (21-28); O2 Saturation % 99.1 % (94-98); PCO2 59 mmHg (32-35); PO2 83 mmHg (83-108); pH 7.37 (7.35-7.45)
[2024-01-14] MEDS: NORCO 7.5/325 1 TABLET PO ×2 (16:54→21:20)
[2024-01-14 19:50] LABS: TSH Reflex To Free T4 2.52 uIU/ml (0.47-4.68)
[2024-01-14] MEDS: LIPITOR 10 MG PO (19:52)
[2024-01-14] MEDS: ELIQUIS 5 MG PO (19:52)
[2024-01-14] MEDS: PEPCID 10 MG PO (19:52)
[2024-01-14] MEDS: VIBRAMYCIN 100 MG PO (20:11)
[2024-01-14] MEDS: ZOFRAN 4 MG IV (21:12)
[2024-01-14] MEDS: ZYRTEC PO (22:36)
[2024-01-15] VITALS (11 sets, daily range): BP systolic 89–124; BP diastolic 51–65; PULSE 2–61; O2SAT 99; BMI 30.7
[2024-01-15] MEDS: NORCO 7.5/325 1 TABLET PO ×4 (02:03→20:45)
--- NOTE | 2024-01-15 07:45 | W.PN.HOSP.TC ---
Addendum entered and electronically signed by Panchito Berrios MD 01/15/24 14:29:
I personally performed a history and physical exam of the patient and discussed management with the resident. I reviewed the resident's note and agree with the documented findings and plan of care HPI/CC
Seen and examined the patient earlier today. Late documentation.
She is feeling better. Was seated in a chair.
Cardiovascular system S1-S2 appreciated slightly bradycardic
Chest few rales bilaterally
No pedal edema
# Mild thrombocytopenia-follow
Decreased metoprolol to 25 mg daily continue amiodarone
Continue Lasix but closely watch as she does not look too much overloaded
Repeat chest x-ray tomorrow
cards following
D/W
Original Note:
Today's Communication/Plan
-
Adjust amiodarone and metoprolol per cards recommendation.
Echo pending.
Labs pending
Assessment / Plan
Assessment / Plan
# Acute hypoxic and hypercarbic respiratory failure
Continue BiPAP, repeat ABG ordered-Much better
Chest x-ray with pulmonary edema
Likely reason is CHF-check echo to identify the type
Other differentials such as infection, aspiration, amiodarone induced lung injury, or need to be ruled out.
IV diuresis will give 20 mg of Lasix IV now and follow creatinine in the morning before we get more.
Troponin (-)
Echo pending
Chest x-ray reviewed by me-cephalization consistent with pulmonary edema
Echo 10/22/2023-preserved EF 60 to 65%, severely dilated LA, mildly dilated RA, moderate MR and TR and pulmonary artery pressure 45 mmHg. Mild aortic stenosis
# Paroxysmal atrial fibrillation /atypical flutter
Bradycardia noted now-in sinus rhythm
History of multiple ablations
Was on Tikosyn in the past-currently on amiodarone
Cardioversion multiple times last - 01/13/2024
Continue amiodarone 200 mg daily, Eliquis and lowered metoprolol
Cards appreciated for further medication dosing
#Hypermagnesemia
Consider holding magnesium
Cardiology placed pt on mg supplements
Cards appreciated
#Nausea
Patient threw up after taking doxycycline. Still feels nauseous.
Doxy changed to IV
Will monitor nausea
# Aortic stenosis/moderate MR
# Hypertension-continue losartan, metoprolol to be reduced
# ELIZABETH- Watch with diuresis
# Sleep apnea Compliant with CPAP
# Chronic bronchitis-continue Incruse Ellipta or equivalent
# Hyperlipidemia-continue statin
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
# Depression-continue Effexor
# [id number] in 1975
# DVT prophylaxis-Eliquis
# CODE STATUS- FUll CODE
Anticipated Discharge: 24 - 48 hours
Subjective/Interval History
-
Date of Service: January 15, 2024
Objective Data
-
Labs:
Laboratory Results
01/15/24
06:00
WBC Pending
Hgb Pending
Hct Pending
Plt Count Pending
Sodium Pending
Potassium Pending
Chloride Pending
Carbon Dioxide Pending
BUN Pending
Creatinine Pending
Glucose Pending
Calcium Pending
Vital Signs:
Vital Signs
Temp Pulse Resp BP Pulse Ox
98.2 F 54 18 110/53 97
01/15/24 03:21 01/15/24 03:21 01/15/24 03:21 01/15/24 03:21 01/15/24 03:21
Review of Systems
-
History Source: Patient
Constitutional: Reports Fatigue
EENT: Reports Runny Nose
Respiratory: Reports Trouble Breathing (good on 4L oxygen nasal canula)
Cardiac: Reports No Symptoms
Abdomen/GI: Reports Nausea and Vomiting (once last night )
Genitourinary: Reports No Symptoms
Musculoskeletal: Reports No Symptoms
Neuro: Reports No Symptoms
Physical Exam
-
Respiratory: Crackles
Cardiac: S1/S2 and Bradycardic
GI: Soft, Nontender, Nondistended and Normal Bowel Sounds
Musculoskeletal: No Edema
Skin: Warm and Dry
Neuro: AO x 3
Psych: Calm
[2024-01-15] MEDS: SPIRIVA RESPIMAT 2.5 MCG 2 PUFF INH (08:39)
--- NOTE | 2024-01-15 08:58 | PTOTSP ---
Speech Therapy Assessment
Oral/pharyngeal swallow deemed within functional limits without overt signs of aspiration. Discussed risk of aspiration with patient as it is related to her pulmonary history and aspiration precautions.
Recommend
1. Maintain Regular Solids and Thin Liquids
2. Upright with all intake
3. Meds with liquid
5. Slow rate
No skilled ST indicated at this time.
--- NOTE | 2024-01-15 09:36 | W.PN.CARDCBS ---
Addendum entered and electronically signed by Donovan Santoyo MD 01/15/24 15:37:
I saw and examined the patient.
The Creosoting Engineer's note was reviewed and I agree with the note.
Comment:
GEN: No distress, awake, Ox3
HEENT: supple, anicteric, mmm
LUNGS: CTA, no wheezes/rales
CV: Reg, S1/S2, 1/6 syst LSB, no gallop
ABD: soft, BS+, NT/ND
EXT: No edema
NEURO: Gross non-focal
SKIN: No rash
Plan:
Clinically improved and is now off BiPAP. Continue to wean oxygen.
Continue IV Lasix 40 mg twice daily for another 24 hours.
Remains in sinus rhythm. Continue amiodarone 200 mg daily and Toprol 25 mg daily.
Continue Eliquis.
Blood pressure is marginal.
Will await repeat echo to consider Jardiance/Farxiga/spironolactone
Original Note:
Today's Communication / Plan
-
continue IV diuresis
wean supp O2
continue amiodarone, toprol 25mg daily and follow HRs
follow up echo
Impression / Plan
-
PCP: Dr. Shayy Jon
Cardiology: Dr. Chen
Impression:
Presentation with SOB
Acute hypoxic respiratory failure
Acute HFpEF
Paroxysmal Afib
s/p PVI 08/2011
s/p PVI ant typical flutter ablation 12/2011
s/p PVI 10/18/19
tikosyn load 11/2020
s/p failed CV 12/03/23, tikosyn stopped
started on amiodarone 12/11/23
s/p CV 01/13/24
Chronic Eliquis OAC
HTN
Hyperlipidemia
MARIELA on CPAP
Emphysema/ILD
Mod MR and mild by echo 10/2023
Significant arthritis
Thyroid nodule
Echo 11/24/18: EF 55-60%, mild MR, severely dilated LA, mild peak/mean 24/15 with MIKIE 20 cm sq
ECHO 10/22/2023: EF 60 to 65%, moderate MR, mild with peak/mean gradients 30/17 mmHg, moderate TR, PAP 45 mmHg
Plan:
-Patient presents with shortness of breath and evidence of acute heart failure post cardioversion 01/13/2024.
-she has been weaned off of bipap. Continue to wean supplemental oxygen
-Continue IV diuresis. Creatinine pending this morning. She was taking p.o. Lasix 20 mg as needed as an outpatient prior to admission
-check follow-up echo study, last from 10/2023 as above
-CHF education
-Remains in sinus rhythm with heart rates in the 50s on review of tele. 2 very brief runs of A-fib versus A. tach overnight. Continue amiodarone 200 mg daily. Continue Toprol 50 mg daily, was on 100 mg daily prior to admission, however was with
bradycardia on arrival to the ER
-Continue Eliquis
-Discussed with patient and family at bedside. d/w nursing
Progress Note - Pediatric Dental Assistant
Subjective
Date of Service: January 15, 2024
Reports breathing improving
Objective
Labs:
Labs
Hgb 13.0 g/dL (12.0-16.0) 01/14/24 11:41
Hct 41.2 % (37.0-47.0) 01/14/24 11:41
Plt Count 144 10^3/uL (130-400) 01/14/24 11:41
Sodium 135 mmol/L (135-145) 01/14/24 11:41
Potassium mmol/L (3.5-5.1) 01/14/24 11:41
BUN 39 mg/dl (7-17) H 01/14/24 11:41
Creatinine 1.1 mg/dL (0.6-1.0) H 01/14/24 11:41
Glucose 140 mg/dl (70-99) H 01/14/24 11:41
Troponins
01/14/24
11:41
Troponin I < 0.012
Vital Signs and I&O:
Vital Signs
Temp Pulse Resp BP Pulse Ox
97.5 F 51 16 108/59 99
01/15/24 07:45 01/15/24 08:43 01/15/24 08:43 01/15/24 07:45 01/15/24 08:43
Vital Signs
Temp Pulse Resp BP Pulse Ox
97.5 F 51 16 108/59 99
01/15/24 07:45 01/15/24 08:43 01/15/24 08:43 01/15/24 07:45 01/15/24 08:43
Physical Exam
Physical Exam
GEN: No distress, awake, alert, oriented x3. on supp O2. sitting in chair
HEENT: supple, anicteric, mmm, eomi
LUNGS: Crackles B/L bases, no wheezes
CV: Reg and luzma, S1/S2, 2/6 murmur
ABD: soft, BS+, NT/ND
EXT: No cyanosis, clubbing, edema
NEURO: Gross non-focal
SKIN: Warm, pink, dry. No rash
[2024-01-15] MEDS: OCUVITE SOFTGEL 1 CAP PO (09:57)
[2024-01-15] MEDS: PACERONE 200 MG PO (09:57)
[2024-01-15] MEDS: EFFEXOR XR 37.5 MG PO (09:57)
[2024-01-15] MEDS: MAGNESIUM OXIDE 500 MG PO (09:57)
[2024-01-15] MEDS: ELIQUIS 5 MG PO ×2 (09:58→19:45)
[2024-01-15] MEDS: TOPROL XL 25 MG PO (09:58)
[2024-01-15 10:14] LABS: % Basophils 0.4 % (0-2); % Eosinophils 0.8 % (0-6); % Immature Granulocytes 0.4 % (0-0.5); % Lymphocytes 13.7 % (20.5-51.1); % Neutrophils 72.7 % (42.2-75.2); Absolute Eosinophils 0.1 10^3/uL (0-0.7); Absolute Monocytes 0.9 10^3/uL (0.1-0.6); Absolute Neutrophils 5.5 10^3/uL (1.4-6.5); Hematocrit 37.1 % (37.0-47.0); Hemoglobin 11.8 g/dL (12.0-16.0); Mean Corp Hgb Conc. 31.8 g/dL (33.0-37.0); Mean Corpuscular Hgb 33.1 pg (27.0-31.0); Mean Corpuscular Volume 103.9 fL (81.0-99.0); Mean Platelet Volume 10.4 fL (7.4-10.4); Nucleated Red Blood Cells % 0 %; Platelet Count 110 10^3/uL (130-400); Red Blood Cell Count 3.57 10^6/uL (4.20-5.40); Red Cell Dist. Width 13.4 % (11.5-14.5); White Blood Cell Count 7.6 10^3/uL (4.8-10.8)
[2024-01-15] MEDS: VIBRAMYCIN PO (10:26)
[2024-01-15 10:28] LABS: Blood Urea Nitrogen 36 mg/dl (7-17); Calcium 9.5 mg/dl (8.4-10.2); Carbon Dioxide 32 mmol/L (22-30); Chloride 97 mmol/L (98-107); Estimated Creatinine Clearance 38 ml/min; Glucose 101 mg/dl (70-99); Potassium 4.2 mmol/L (3.5-5.1); Sodium 137 mmol/L (135-145); eGFR 48.94
[2024-01-15 10:35] LABS: Procalcitonin 0.12 ng/ml (0.0-0.25)
--- NOTE | 2024-01-15 10:40 | CM ---
Patient seen bedside, initial assessment completed. Patient resides with her spouse in a single story home, one step to enter. Patient has a rolling walker that she uses in the community, CPAP machine through [facility]. Patient
reports history of VN through [facility], SNF in the past, unsure name of facilities. PCP Shayy Jon, [facility], confirms prescription coverage. Patient denies food, housing/utility, transportation insecurities at home. CM discussed PT
recommendations of SNF, patient not agreeable at this time, is agreeable to home [facility] services, TT sent to [facility] with referral. CM will continue to follow for all discharge planning needs.
Plan; home with [facility] pending acceptance.
[2024-01-15] MEDS: LASIX 40 MG IV ×2 (11:07→16:21)
[2024-01-15] MEDS: VIBRAMYCIN 260 MG IV ×2 (11:08→21:22)
--- NOTE | 2024-01-15 13:59 | PTCARENOTE ---
Assumed care at 0700. VSS. Sao2 stable on BiPap + 5L. Transitioned to 5L nasal cannula and then weaned to 4L. SaO2 remains >93%. Patient able to ambulate few steps to [facility] w/ staff assistance x1. +MCLEAN. Patient's daughter, who was at bedside earlier
today made aware buprenorphine patch is nonformulary. Patch due to be replaced on Friday. Instructed to bring medication patch in to hospital and give to staff. Updated on plan of care.
--- NOTE | 2024-01-15 14:54 | VNURNOTE ---
Home Health Liaison spoke with patient to discuss [facility] nurse/therapy, visits, schedule and homebound status. Patient is agreeable and understands that visits at home will be 1-3 x per week to assess and teach medical management. Patient is aware
that [facility] will contact them for start of care within a few days after discharge from .
[facility] referral completed in [facility].
--- NOTE | 2024-01-15 15:10 | W.PN.PUL3 ---
Today's Communication / Plan
-
Continue diuresis per cardiology. Chest x-ray and exam improved
No indication for CT chest at this time
Consider discontinuing antibiotics
Aspiration precautions
Close outpatient follow-up with regards to interstitial process
Continue BiPAP
Assessment
-
88-year-old female with complex medical history, atrial fibrillation with multiple cardioversions/history of ablation in the past, COPD/interstitial lung disease, sleep apnea on CPAP therapy, started on amiodarone early December 2023 with progressive
shortness of breath, fatigue. Was noted to have increased crackles on exam 01/05 as outpatient. Underwent cardioversion successfully 01/12, now presents with worsening shortness of breath, persistent crackles, episodic bradycardia heart rate down in
the 30s. We are asked to help from pulmonary standpoint 01/14/2024
Subjective dyspnea, progressive
92% room air
Suspected hypercapnia based on VBG
On BiPAP in ED
Night sweats, fatigue
Bilateral interstitial infiltrates
Infectious versus pulmonary edema versus inflammatory
Moderate MR, mild aortic stenosis 1.6 cm
PA pressure 45
Normal biventricular function
Chronic hypoxia on home oxygen
88% as outpatient
Conditions present prior to admission
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
Hypertension/hyperlipidemia
COPD
Emphysema per CT chest
FEV1 0.93/52%, TLC 3.41/59%, DLCO 32%
Sleep apnea severe, index 52.7, desaturation micaela 82%
On auto CPAP, remains compliant
Distant tobacco history, quit 1975
Plan/recommendations
Patient with complex medical history
Salient features include increased crackles on exam over the past month, increased interstitial changes per chest x-ray, amiodarone therapy x 1 month
Successful cardioversion 01/12, now with bradycardia heart rate 30s to 50s
Patient describes episode of night sweats this morning/diaphoresis
ABG reviewed, compensated hypercapnia, pCO2 59
Chest x-ray today with significant improvement with interstitial changes, making less likely amiodarone toxicity a possibility
Moving forward
Maintain on BiPAP for now
Continues diuresis per cardiology
Concerned about an infectious process
Patient describes drenching sweats this morning, unclear if this was diaphoresis in the setting of bradycardia versus an infectious process
COVID-negative
TSH normal, procalcitonin normal
Consider discontinuing antibiotics
Patient on amiodarone, beta-bharti therapy. This may need to be modified. Will defer to cardiology
Patient has had multiple cardioversions, unsuccessful. This is the first successful cardioversion in the setting of amiodarone therapy
Although amiodarone may be causing her interstitial process, this is a diagnosis of exclusion
Cardiology is following
Repeat echo pending
Given improvement in chest x-ray, hold on CT chest
Patient does appear to be more fatigued than typical.
Less likely sepsis given improvement overall
Aspiration precautions
Head of bed elevated
Reviewed with patient, at bedside and primary service
Will follow
Subjective Data
-
Date of Service:
Date of Service: January 15, 2024
Subjective:
Patient feels better. Less short of breath. Denies chest pain, abdominal pain, nausea. Has mild cough, nonproductive, no hemoptysis. at bedside
Objective Data
Data Reviewed
Vital Signs / I&O / Oxygen:
Vital Signs
Temp Pulse Resp BP Pulse Ox
98.6 F 53 17 110/56 97
01/15/24 11:01 01/15/24 11:07 01/15/24 11:01 01/15/24 11:07 01/15/24 11:01
Intake and Output
01/14/24 01/15/24 01/16/24
06:59 06:59 06:59
Output Total 600 / 600
Balance -600 / -600
SaO2 97
Nasal Cannula flow liters per 4
minute
Physical Exam
General: Comfortable
HEENT: Normocephalic and Anicteric
Cardiovascular: S1-S2, Regular Rhythm, Murmur (n), Rub (n) and Peripheral Edema (Trace)
Respiratory: Wheeze (n), Crackles (Minimal at base), Rhonchi (n) and Non-Labored Respirations
GI: Soft, Non Distended and Non Tender
Neurology: Awake, Alert and No Motor Deficits
Skin: Cyanosis (n), Jaundice (n) and Rash (n)
Labs/Micro/Reports
Lab Data
01/15/24 09:33
01/15/24 09:33
Laboratory Results
01/14/24
16:43
pH 7.37
pCO2 59 H
pO2 83
HCO3 34.1 H
O2 Delivery Level
[2024-01-15] MEDS: PEPCID 10 MG PO (16:22)
[2024-01-15] MEDS: LIPITOR 10 MG PO (16:22)
[2024-01-15] MEDS: ZYRTEC 5 MG PO (20:45)
[2024-01-16] VITALS (8 sets, daily range): BP systolic 112–130; BP diastolic 58–66; PULSE 62; O2SAT 95–96; BMI 30.1
[2024-01-16] MEDS: NORCO 7.5/325 1 TABLET PO ×5 (01:52→21:54)
[2024-01-16 06:58] LABS: Hematocrit 36.2 % (37.0-47.0); Hemoglobin 11.6 g/dL (12.0-16.0); Mean Corpuscular Hgb 33.2 pg (27.0-31.0); Mean Corpuscular Volume 103.7 fL (81.0-99.0); Mean Platelet Volume 10.3 fL (7.4-10.4); Platelet Count 100 10^3/uL (130-400); Red Blood Cell Count 3.49 10^6/uL (4.20-5.40); Red Cell Dist. Width 13.3 % (11.5-14.5); White Blood Cell Count 6.4 10^3/uL (4.8-10.8)
[2024-01-16 07:08] LABS: ALT (SGPT) 28 U/L (0-35); AST (SGOT) 36 U/L (14-36); Albumin 3.6 g/dl (3.5-5.0); Alkaline Phosphatase 87 U/L (38-126); Blood Urea Nitrogen 35 mg/dl (7-17); Calcium 9.3 mg/dl (8.4-10.2); Carbon Dioxide 38 mmol/L (22-30); Chloride 94 mmol/L (98-107); Estimated Creatinine Clearance 37 ml/min; Glucose 99 mg/dl (70-99); Potassium 3.6 mmol/L (3.5-5.1); Sodium 135 mmol/L (135-145); Total Bilirubin 0.7 mg/dl (0.2-1.3); Total Protein 5.9 g/dl (6.3-8.2); eGFR 48.94
[2024-01-16] MEDS: SPIRIVA RESPIMAT 2.5 MCG 2 PUFF INH (07:14)
--- NOTE | 2024-01-16 08:31 | PN.CDI ---
CDI
- -
CDI:
Physician Documentation Request
Admit Date: 01/14/24 15:46
Dear Doctor Dwayne,
Please review the following and provide your response in the progress notes.
Clinical Indicators:
Pt admitted with acute respiratory failure.
RN initial assessment noted stage 1 bilateral buttocks pressure injury POA.
Physician documentation of the type and location of wounds is required for compliant documentation. Based on the above clinical findings and your assessment, please provide the following in your progress note:
stage 1 bilateral buttocks pressure injury POA
non-pressure injury
other
Use of terms such as suspected, likely, concern for, or probable (associated with a specific diagnosis that is being evaluated, monitored, or treated as if it exists) are acceptable and can be coded in the inpatient setting, when documented at the
time of discharge.
Thank you,
Cecilia Barger RN, BSN
CDI Specialist
Available via [place] [employer]
Please use your independent medical judgment in providing your response.
*Source: National Pressure Ulcer Advisory Panel (NPUAP)
[2024-01-16] MEDS: MAGNESIUM OXIDE 500 MG PO (08:33)
[2024-01-16] MEDS: PACERONE 200 MG PO (08:33)
[2024-01-16] MEDS: ELIQUIS 5 MG PO ×2 (08:33→20:42)
[2024-01-16] MEDS: TOPROL XL 25 MG PO (08:33)
[2024-01-16] MEDS: EFFEXOR XR 37.5 MG PO (08:33)
[2024-01-16] MEDS: LASIX 40 MG IV ×2 (08:34→15:17)
[2024-01-16] MEDS: OCUVITE SOFTGEL 1 CAP PO (08:34)
--- NOTE | 2024-01-16 09:06 | W.PN.PUL3 ---
Today's Communication / Plan
-
Suspect radiographically, clinically and subjectively improved with diuresis
Continue amiodarone per cardiology
Out of bed to chair, PT/OT
Continue nocturnal BiPAP
Short-term follow-up in the pulmonary office, information left in chart
We will sign off. Please call with questions
Assessment
-
88-year-old female with complex medical history, atrial fibrillation with multiple cardioversions/history of ablation in the past, COPD/interstitial lung disease, sleep apnea on CPAP therapy, started on amiodarone early December 2023 with progressive
shortness of breath, fatigue. Was noted to have increased crackles on exam 01/05 as outpatient. Underwent cardioversion successfully 01/12, now presents with worsening shortness of breath, persistent crackles, episodic bradycardia heart rate down in
the 30s. We are asked to help from pulmonary standpoint 01/14/2024
Subjective dyspnea, progressive
92% room air
Suspected hypercapnia based on VBG
On BiPAP in ED
Night sweats, fatigue
Bilateral interstitial infiltrates
Infectious versus pulmonary edema versus inflammatory
Moderate MR, mild aortic stenosis 1.6 cm
PA pressure 45
Normal biventricular function
Chronic hypoxia on home oxygen
88% as outpatient
Conditions present prior to admission
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
Hypertension/hyperlipidemia
COPD
Emphysema per CT chest
FEV1 0.93/52%, TLC 3.41/59%, DLCO 32%
Sleep apnea severe, index 52.7, desaturation micaela 82%
On auto CPAP, remains compliant
Distant tobacco history, quit 1975
Plan/recommendations
Patient with complex medical history
Salient features include increased crackles on exam over the past month, increased interstitial changes per chest x-ray, amiodarone therapy x 1 month
Successful cardioversion 01/12, now with bradycardia heart rate 30s to 50s
Patient describes episode of night sweats this morning/diaphoresis
ABG reviewed, compensated hypercapnia, pCO2 59
Chest x-ray today with significant improvement with interstitial changes, making amiodarone toxicity less likely
Moving forward
Maintain on BiPAP for now
Continues diuresis per cardiology
Concerned about an infectious process
Patient describes drenching sweats this morning, unclear if this was diaphoresis in the setting of bradycardia versus an infectious process
COVID-negative
TSH normal, procalcitonin normal
Consider discontinuing antibiotics
Patient on amiodarone, beta-bharti therapy. This may need to be modified. Will defer to cardiology
Patient has had multiple cardioversions, unsuccessful. This is the first successful cardioversion in the setting of amiodarone therapy
Although amiodarone may be causing her interstitial process, this is a diagnosis of exclusion
Cardiology is following
Repeat echo pending
Given improvement in chest x-ray, hold on CT chest
Patient does appear to be more fatigued than typical.
Less likely sepsis given improvement overall
Aspiration precautions
Head of bed elevated
Reviewed with patient, at bedside and primary service
Pulmonary follow-up recommendations left in chart
Ongoing disposition efforts
Subjective Data
-
Date of Service:
Date of Service: January 16, 2024
Subjective:
Patient is feeling improved. Is less short of breath. She has more energy. Minimal cough, no chest pain. She is able to ambulate with less issues
Objective Data
Data Reviewed
Vital Signs / I&O / Oxygen:
Vital Signs
Temp Pulse Resp BP Pulse Ox
98.0 F 53 17 119/60 99
01/16/24 07:40 01/16/24 07:40 01/16/24 07:40 01/16/24 08:33 01/16/24 07:40
Intake and Output
01/15/24 01/16/24 01/17/24
06:59 06:59 06:59
Intake Total 1020 / 1020
Output Total 1500 / 1500
Balance -480 / -480
SaO2 99
Nasal Cannula flow liters per 4
minute
Physical Exam
General: Comfortable
HEENT: Normocephalic and Anicteric
Cardiovascular: S1-S2, Regular Rhythm, Murmur (n), Rub (n) and Peripheral Edema (Trace)
Respiratory: Wheeze (n), Crackles (Minimal at base), Rhonchi (n) and Non-Labored Respirations
GI: Soft, Non Distended and Non Tender
Neurology: Awake, Alert and No Motor Deficits
Skin: Cyanosis (n), Jaundice (n) and Rash (n)
Labs/Micro/Reports
Lab Data
01/16/24 06:19
01/16/24 06:19
[2024-01-16] MEDS: VIBRAMYCIN 260 MG IV (09:31)
--- NOTE | 2024-01-16 10:46 | CM ---
Addendum entered by Nithya Rao 01/16/24 15:59:
Patient seen bedside with spouse, discussed potential plan for discharge tomorrow. Patient confirms she has CPAP/O2 at home. IMM reviewed, signed, placed in chart.
Plan; home with [facility].
Original Note:
CM reviewed chart, patient for repeat chest x-ray today. Patient seen bedside, reports no concerns at this time, reports she did not get a lot of rest last night. [facility] has accepted patient, patient not interested in SNF. CM will continue to follow
for all discharge planning needs.
Plan; home with [facility].
--- NOTE | 2024-01-16 12:05 | W.PN.CARDCBS ---
Addendum entered and electronically signed by Maite Alonso DO 01/16/24 17:09:
I saw and examined the patient.
The Tire Inspector's note was reviewed and I agree with the note.
Comment: Patient seen and examined with at bedside. Overall feels better with less shortness of breath. No chest pain or pressure. Still on nasal cannula O2 which at home is as needed and nocturnal with BiPAP. Patient states she is
ambulating around room without assistance.
GEN: NAD on nc O2
HEENT: mmm
LUNGS: Crackles at left base, no wheezes
CV: Reg and luzma, S1/S2, 2/6 murmur
ABD: soft, BS+, NT/ND
EXT: No edema
NEURO: Gross non-focal
Plan:
Heart failure with preserved ejection fraction
-Patient presents with shortness of breath and evidence of acute heart failure, proBNP 4750 post cardioversion 01/13/2024.
-Diuresed well with IV Lasix with stable creatinine and improved symptoms
-Transition to oral Lasix tomorrow -Lasix 40 mg daily
-Basic metabolic profile in 1 week
-Echo as noted above with preserved ejection fraction moderate to severe MR, mild and moderate TR.
-CHF education
Paroxysmal atrial fibrillation
-Remains in sinus rhythm with heart rates in the 50s on review of tele. Occasional brief runs of A-fib versus A. tach and 13 beats of VT am of 01/16/24. Continue amiodarone 200 mg daily. Continue Toprol 50 mg daily, was on 100 mg daily prior to
admission, however was with bradycardia on arrival and continues to have bradycardia
-Continue Eliquis
Chronic hypoxia with emphysema and is just a lung disease in addition to severe sleep apnea on BiPAP
-O2 management per pulmonary
-Continue nocturnal BiPAP with O2
Stable for discharge from a cardiac standpoint
Outpatient cardiac follow-up arranged
Will sign off, recall if needed
Original Note:
Today's Communication / Plan
-
Replete K+
Continue IV diuresis for another 24 hours then consider transitioning to oral Lasix
Impression / Plan
-
PCP: Dr. Shayy Jon
Cardiology: Dr. Chen
Impression:
Presented 01/14/2024 with SOB
Acute hypoxic respiratory failure
Acute HFpEF, proBNP 4750
Paroxysmal Afib
s/p PVI 08/2011
s/p PVI ant typical flutter ablation 12/2011
s/p PVI 10/18/19
tikosyn load 11/2020
s/p failed CV 12/03/23, tikosyn stopped
started on amiodarone 12/11/23
s/p CV 01/13/24
Chronic Eliquis OAC
HTN
Hyperlipidemia
MARIELA on CPAP
Emphysema/ILD
Mod-severe MR, mod TR and mild by echo 01/2024
Significant arthritis
Thyroid nodule
Echo 11/24/18: EF 55-60%, mild MR, severely dilated LA, mild peak/mean 24/15 with MIKIE 20 cm sq
ECHO 10/22/2023: EF 60 to 65%, moderate MR, mild with peak/mean gradients 30/17 mmHg, moderate TR, PAP 45 mmHg
Echo 01/15/2024: EF 60 to 65% with normal regional wall motion. Stage II diastolic dysfunction suggestive of abnormal relaxation and increased filling pressures. Severely dilated left atrium, mildly dilated right atrium. Moderate to severe MR,
mild , moderate TR with PAP 45 to 50 mmHg
Plan:
-Patient presents with shortness of breath and evidence of acute heart failure, proBNP 4750 post cardioversion 01/13/2024.
-she has been weaned off of bipap. Still on 4 lpm via NC. Continue to wean supplemental oxygen
-Continue IV diuresis Lasix 40 mg BID. Weight down 3-4 lbs. Creatinine stable at 1.1. She thinks baseline weight is around 173-175 lbs. She was taking p.o. Lasix 20 mg as needed as an outpatient prior to admission
-K+ 3.6, replete, mag 2.0
-Echo as noted above with preserved ejection fraction moderate to severe MR, mild and moderate TR.
-CHF education
-Remains in sinus rhythm with heart rates in the 50s on review of tele. Occasional brief runs of A-fib versus A. tach and 13 beats of VT am of 01/16/24. Continue amiodarone 200 mg daily. Continue Toprol 50 mg daily, was on 100 mg daily prior to
admission, however was with bradycardia on arrival and continues to have bradycardia
-Continue Eliquis
-Discussed with patient and family (son Tito) at bedside. d/w nursing
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
Subjective
Date of Service: January 16, 2024
Pt seen and examined. Reports she is feeling better. Still requiring oxygen but being weaned down. Patient just completed physical therapy when I walked in and they reported she was able to ambulate on oxygen with use of a walker about the room
and down the khan a bit which was much better than day prior.
Patient son at bedside
Objective
Labs:
01/16/24 06:19
01/16/24 06:19
Labs
Hgb 11.6 g/dL (12.0-16.0) L 01/16/24 06:19
Hct 36.2 % (37.0-47.0) L 01/16/24 06:19
Plt Count 100 10^3/uL (130-400) L 01/16/24 06:19
Sodium 135 mmol/L (135-145) 01/16/24 06:19
Potassium 3.6 mmol/L (3.5-5.1) 01/16/24 06:19
BUN 35 mg/dl (7-17) H 01/16/24 06:19
Creatinine 1.1 mg/dL (0.6-1.0) H 01/16/24 06:19
Glucose 99 mg/dl (70-99) 01/16/24 06:19
Troponins
01/14/24
11:41
Troponin I < 0.012
Vital Signs and I&O:
Vital Signs
Temp Pulse Resp BP Pulse Ox
98.0 F 51 17 121/62 98
01/16/24 11:10 01/16/24 11:10 01/16/24 11:10 01/16/24 11:10 01/16/24 11:10
Vital Signs
Temp Pulse Resp BP Pulse Ox
98.0 F 51 17 121/62 98
01/16/24 11:10 01/16/24 11:10 01/16/24 11:10 01/16/24 11:10 01/16/24 11:10
Intake & Output
01/14/24 01/15/24 01/16/24 01/17/24
06:59 06:59 06:59 06:59
Intake Total 1020 / 1020
Output Total 1500 / 1500
Balance -480 / -480
Physical Exam
Physical Exam
GEN: No distress, awake, alert, oriented x3.On oxygen, sitting in chair
HEENT: supple, anicteric, mmm
LUNGS: Crackles at left base, no wheezes
CV: Reg and luzma, S1/S2, 2/6 murmur
ABD: soft, BS+, NT/ND
EXT: No cyanosis, clubbing, edema
NEURO: Gross non-focal
SKIN: Warm, pink, dry. No rash
[2024-01-16] MEDS: KCL 40 MEQ PO (12:38)
--- NOTE | 2024-01-16 14:42 | W.PN.HOSP.TC ---
Addendum entered and electronically signed by Juli Rice MD, Resident 01/19/24 10:25:
#Stage 1 b/1 buttock pressure injury noted on admission
Wound care evaluated
No dressings needed at this time
Pt advised to move around more
Discharged to skilled rehab
Addendum entered and electronically signed by Panchito Berrios MD 01/16/24 15:46:
I personally performed a history and physical exam of the patient and discussed management with the resident. I reviewed the resident's note and agree with the documented findings and plan of care HPI/CC except for changes in documentation
CVS: S1-S2 bradycardia, sm at apex and aa
Chest: Rales bilaterally.
Abdomen: Soft, NT , Bowel sounds present
Extremities: No edema, normal pulses
SHEEP HERDER: Non focal exam
Chest x-ray reviewed by me-infiltrate/edema
Echo 01/15/2024-normal LV size. EF 60 to 65%. Normal LV wall thickness. Stage II diastolic dysfunction. Severely dilated LA, mildly dilated RA, mitral annular calcification, moderate to severe central mitral regurgitation, mild , trace AI,
moderate TR, pulmonary artery pressure 45 to 50 mmHg
# Acute hypoxic and hypercarbic respiratory failure
Continue BiPAP, repeat ABG ordered-Much better
Chest x-ray with pulmonary edema-better since admission
Acute heart failure with preserved ejection fraction
Other differentials such as infection-ruled out, aspiration-ruled out, amiodarone induced lung injury, need to be ruled out -if chest x-ray does not come back to normal-this can be followed as outpatient.
IV diuresis Lasix IV now and follow creatinine in the morning
Troponin negative
# Paroxysmal atrial fibrillation /atypical flutter
Bradycardia noted now-in sinus rhythm
History of multiple ablations
Was on Tikosyn in the past-currently on amiodarone
Cardioversion multiple times last - 01/13/2024
Continue amiodarone 200 mg daily, Eliquis and lowered metoprolol
# Aortic stenosis/moderate MR
# Hypertension-continue losartan, metoprolol reduced
# ELIZABETH- Watch with diuresis
# Sleep apnea Compliant with CPAP
# Chronic bronchitis-continue Incruse Ellipta or equivalent
# Hyperlipidemia-continue statin
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
# Depression-continue Effexor
# Rb-rejafd-ojor in 1975
# DVT prophylaxis-Eliquis
# CODE STATUS- FUll CODE
Discussed with at bedside
Discussed with PT at bedside
Patient wants to go home and not to rehab.
Wean oxygen
Original Note:
Today's Communication/Plan
-
Continue Bipap
Continue lasix -- re-evaluate in am
d/c antibiotics
Assessment / Plan
Assessment / Plan
# Acute hypoxic and hypercarbic respiratory failure
Continue BiPAP--Repeat ABG ordered-Much better
Chest x-ray with pulmonary edema
Likely reason is CHF-check echo to identify the type
Other differentials such as infection, aspiration, amiodarone induced lung injury, or need to be ruled out.
IV diuresis will give 20 mg of Lasix IV now and follow creatinine in the morning before we get more.
Troponin (-)
Patient on 3L nasal cannula room satting well. Continue to wean O2.
Echo showed LVEF 60-65%. Dilated L atrium, Moderate mitral regurgitation, mild aortic stenosis
Repeat chest x-ray showed decreased congestion suggesting getting better with lasix
Cardiology recommends give lasix 40 BID today. Re-evaluate in the AM
Antibiotics d/c as no leukocytosis, afebrile and pulm also suggested
Echo 10/22/2023-preserved EF 60 to 65%, severely dilated LA, mildly dilated RA, moderate MR and TR and pulmonary artery pressure 45 mmHg. Mild aortic stenosis
# Paroxysmal atrial fibrillation /atypical flutter
Bradycardia noted now-in sinus rhythm
History of multiple ablations
Was on Tikosyn in the past-currently on amiodarone
Cardioversion multiple times last - 01/13/2024
Continue amiodarone 200 mg daily, Eliquis and 25 metoprolol per cards
#Hypermagnesemia
resolved
#Nausea
Patient threw up after taking doxycycline. Still feels nauseous.
Doxy changed to IV
Nausea resolved
Antibiotics d/c per pulm
# Aortic stenosis/moderate MR
# Hypertension-continue losartan, metoprolol to be reduced
# ELIZABETH- Watch with diuresis
# Sleep apnea Compliant with CPAP
# Chronic bronchitis-continue Incruse Ellipta or equivalent
# Hyperlipidemia-continue statin
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
# Depression-continue Effexor
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
# Pw-[id number]-sbqo in 1975
# DVT prophylaxis-Eliquis
# CODE STATUS- FUll CODE
Anticipated Discharge: 24 - 48 hours
Subjective/Interval History
-
Date of Service: January 16, 2024
Objective Data
-
Labs:
Laboratory Results
01/16/24
06:19
WBC 6.4
Hgb 11.6 L
Hct 36.2 L
Plt Count 100 L
Sodium 135
Potassium 3.6
Chloride 94 L
Carbon Dioxide 38 H
BUN 35 H
Creatinine 1.1 H
Glucose 99
Calcium 9.3
Total Bilirubin 0.7
AST 36
ALT 28
Alkaline Phosphatase 87
Vital Signs:
Vital Signs
Temp Pulse Resp BP Pulse Ox
98.0 F 51 17 121/62 98
01/16/24 11:10 01/16/24 11:10 01/16/24 11:10 01/16/24 11:10 01/16/24 11:10
I&O
01/15/24 01/16/24 01/17/24
06:59 06:59 06:59
Intake Total 1020 / 1020
Output Total 1500 / 1500
Balance -480 / -480
Review of Systems
-
History Source: Patient
Constitutional: Reports Fatigue
Respiratory: Reports Trouble Breathing (significantly better)
Cardiac: Reports No Symptoms
Abdomen/GI: Reports No Symptoms
Genitourinary: Reports No Symptoms
Neuro: Reports No Symptoms
Physical Exam
-
Respiratory: Crackles
Cardiac: Regular Rhythm and S1/S2
GI: Soft, Nontender and Nondistended
Musculoskeletal: Negative No Edema
Skin: Warm and Dry
Neuro: AO x 3
Psych: Calm
[2024-01-16] MEDS: PEPCID 10 MG PO (17:05)
[2024-01-16] MEDS: LIPITOR 10 MG PO (17:06)
[2024-01-16] MEDS: ZYRTEC 5 MG PO (21:49)
[2024-01-17] MEDS: NORCO 7.5/325 1 TABLET PO ×3 (02:32→12:06)
[2024-01-17 02:53] VITALS: BP 118/63
[2024-01-17 06:00] VITALS: BMI 29.6
[2024-01-17 07:00] VITALS: BP 117/66
[2024-01-17] MEDS: SPIRIVA RESPIMAT 2.5 MCG 2 PUFF INH (07:48)
[2024-01-17] MEDS: MAGNESIUM OXIDE 500 MG PO (07:59)
[2024-01-17] MEDS: TOPROL XL 25 MG PO (07:59)
[2024-01-17] MEDS: LASIX 40 MG PO (07:59)
[2024-01-17] MEDS: EFFEXOR XR 37.5 MG PO (07:59)
[2024-01-17] MEDS: OCUVITE SOFTGEL 1 CAP PO (07:59)
[2024-01-17] MEDS: ELIQUIS 5 MG PO (07:59)
[2024-01-17] MEDS: PACERONE 200 MG PO (07:59)
[2024-01-17 10:35] LABS: Blood Urea Nitrogen 31 mg/dl (7-17); Calcium 9.6 mg/dl (8.4-10.2); Carbon Dioxide 40 mmol/L (22-30); Chloride 92 mmol/L (98-107); Estimated Creatinine Clearance 41 ml/min; Glucose 101 mg/dl (70-99); Potassium 4.1 mmol/L (3.5-5.1); Sodium 136 mmol/L (135-145); eGFR 54.87
[2024-01-17 11:19] VITALS: BP 117/58
--- NOTE | 2024-01-17 14:54 | CM ---
Patient for d/c home today.
Spouse will need to provide oxygen for d/c.
IMM completed yesterday.
Plan: home with VN
--- NOTE | 2024-01-17 14:56 | W.PN.HOSP.TC ---
Today's Communication/Plan
-
Discharge
Assessment / Plan
Assessment / Plan
CVS: S1-S2 bradycardia, sm at apex and aa
Chest: Rales bilaterally.
Abdomen: Soft, NT , Bowel sounds present
Extremities: No edema, normal pulses
DEPARTMENT CLINICIAN: Non focal exam
Chest x-ray reviewed by me-infiltrate/edema
Echo 01/15/2024-normal LV size. EF 60 to 65%. Normal LV wall thickness. Stage II diastolic dysfunction. Severely dilated LA, mildly dilated RA, mitral annular calcification, moderate to severe central mitral regurgitation, mild , trace AI,
moderate TR, pulmonary artery pressure 45 to 50 mmHg
# Acute hypoxic and hypercarbic respiratory failure
Continue CPAP,
Chest x-ray with pulmonary edema-better since admission
Acute heart failure with preserved ejection fraction
Other differentials such as infection-ruled out, aspiration-ruled out, amiodarone induced lung injury, need to be ruled out -if chest x-ray does not come back to normal-this can be followed as outpatient.
Lasix changed to PO
Troponin negative
# Paroxysmal atrial fibrillation /atypical flutter
Bradycardia noted now-in sinus rhythm
History of multiple ablations
Was on Tikosyn in the past-currently on amiodarone
Cardioversion multiple times last - 01/13/2024
Continue amiodarone 200 mg daily, Eliquis and lowered metoprolol
# Aortic stenosis/moderate MR
# Hypertension-continue losartan, metoprolol reduced
# ELIZABETH- Watch with diuresis
# Sleep apnea Compliant with CPAP
# Chronic bronchitis-continue Incruse Ellipta or equivalent
# Hyperlipidemia-continue statin
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
# Depression-continue Effexor
# No-[id number]-[id number] in 1975
# DVT prophylaxis-Eliquis
# CODE STATUS- FULL CODE
Discussed with at bedside
D/W case management
D/W Respiratory-needs 2 L of oxygen
D/W - Op Follow up with .
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
I also discussed with patient and to review CPAP settings with pulmonary next time when She follows up as her CO2 was elevated on admission.
Patient has been states that she uses 2 L at nighttime she used to use daytime oxygen in the past they have tanks at home and a concentrator. He will bring the tanks for her to go home
I gave the option for the patient to either go home today or tomorrow if she preferred to stay another night to get and feel better she prefers to go home today.
Will give a slip for labs in 1 week.
VN and Home PT to be arranged.
Discharge time 39 min
Anticipated Discharge: Today
Subjective/Interval History
-
Date of Service: January 17, 2024
Objective Data
-
Labs:
Laboratory Results
01/17/24
09:04
Sodium 136
Potassium 4.1
Chloride 92 L
Carbon Dioxide 40 H
BUN 31 H
Creatinine 1.0
Glucose 101 H
Calcium 9.6
Vital Signs:
Vital Signs
Temp Pulse Resp BP Pulse Ox
98.9 F 56 18 117/58 95
01/17/24 11:19 01/17/24 11:19 01/17/24 11:19 01/17/24 11:19 01/17/24 11:19
I&O
01/16/24 01/17/24 01/18/24
06:59 06:59 06:59
Intake Total 1020 / 1020 360 / 360
Output Total 1500 / 1500 700 / 700
Balance -480 / -480 -340 / -340
--- NOTE | 2024-01-17 15:08 | W.DS.TRANS ---
Addendum entered and electronically signed by Panchito Berrios MD 01/17/24 15:53:
Dictation- [id number]
Original Note:
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
-
Discharge Instructions:
Discharge Diagnosis/Procedures Acute hypoxic and hypercarbic respiratory
failure
Paroxysmal atrial fibrillation
Aortic stenosis
Moderate mitral regurgitation
Hypertension
Acute kidney injury
Sleep apnea
Chronic bronchitis
Hyperlipidemia
Arthritis
Diet 2 Gram Sodium,Restrict fluids to 48 oz
Activity As tolerated,With assistance
Driving Restrictions Not until seen by your Dr
Blood Work BMP 1 week
Others Tests Repeat chest x-ray 4 weeks
Other Services VN
Specialty Instructions Weigh Daily
Instructions: *DCA Heart Failure Instructions
Stand-Alone Forms:
Changes to Home Medications: Yes
Discharge Medications:
DC Medications w/original date entered in [facility]
simvastatin 20 mg tablet 20 mg PO QPM High cholesterol 07/25/14
apixaban 5 mg tablet (Eliquis) 5 mg PO BID Blood clot prevention/tx 01/18/19
buprenorphine 20 mcg/hour weekly transdermal patch (Butrans) 1 patch topical SA Pain 10/18/19
cetirizine 10 mg tablet 10 mg PO HS Allergies 12/12/20
furosemide 20 mg tablet (Lasix) 20 mg PO DAILY Fluid Retention/Swelling 08/28/23
magnesium oxide 500 mg PO DAILY Electrolyte Repletion 08/28/23
venlafaxine 37.5 mg capsule,extended release 24 hr 37.5 mg PO DAILY Mental Health 08/28/23
vit C 250 mg-vit E 90 mg-zinc 40 mg-copper 1 [id number] capsule (PreserVision AREDS-2) 1 tab PO DAILY Supplement 08/28/23
amiodarone 200 mg tablet 200 mg PO DAILY Arrhythmia 01/14/24
hydrocodone 10 mg-acetaminophen 325 mg tablet 1 tab PO Q4HPRN PRN severe pain 01/14/24
magnesium hydroxide 400 mg/5 mL oral suspension (Milk of Magnesia) 2,400 mg PO DAILYPRN PRN constipation 01/14/24
umeclidinium 62.5 mcg/actuation blister powder for inhalation (Incruse Ellipta) 1 inh inhalation R DAILY Lung/Breathing Issues 01/14/24
famotidine 20 mg tablet 20 mg PO QPM Gastrointestinal issue #0 tabs 01/17/24
furosemide 40 mg tablet 40 mg PO DAILY Fluid retention/Swelling #30 tabs 01/17/24
metoprolol succinate 25 mg tablet,extended release 24 hr 25 mg PO DAILY Arrhythmia #30 tabs 01/17/24
polyethylene glycol 3350 17 gram oral powder packet (Miralax) 17 g PO DAILY Constipation #30 ea 01/17/24
sennosides 8.6 mg capsule (senna) 8.6 mg PO BID Constipation #60 caps 01/17/24
Home Medication Changes
Losartan discontinued
Metoprolol decreased
Lasix increased
MiraLAX and Senokot are new
Pending Results: No
[2024-01-17 15:22] VITALS: BP 141/78
[2024-01-17] MEDS: SENOKOT 17.2 MG PO (15:25)
--- NOTE | 2024-01-17 16:43 | W.DS.TRANS ---
Addendum entered and electronically signed by Panchito Berrios MD 01/17/24 16:46:
Dictation- [id number]
Original Note:
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
-
Discharge Instructions:
Discharge Diagnosis/Procedures Acute hypoxic and hypercarbic respiratory
failure
Paroxysmal atrial fibrillation
Aortic stenosis
Moderate mitral regurgitation
Hypertension
Acute kidney injury
Sleep apnea
Chronic bronchitis
Hyperlipidemia
Arthritis
Diet 2 Gram Sodium,Restrict fluids to 48 oz
Activity As tolerated,With assistance
Driving Restrictions Not until seen by your Dr
Blood Work BMP 1 week
Others Tests Repeat chest x-ray 4 weeks
Other Services VN
Specialty Instructions Weigh Daily
Instructions: *DCA Heart Failure Instructions
Stand-Alone Forms:
Changes to Home Medications: Yes
Discharge Medications:
DC Medications w/original date entered in [facility]
simvastatin 20 mg tablet 20 mg PO QPM High cholesterol 07/25/14
apixaban 5 mg tablet (Eliquis) 5 mg PO BID Blood clot prevention/tx 01/18/19
buprenorphine 20 mcg/hour weekly transdermal patch (Butrans) 1 patch topical SA Pain 10/18/19
cetirizine 10 mg tablet 10 mg PO HS Allergies 12/12/20
magnesium oxide 500 mg PO DAILY Electrolyte Repletion 08/28/23
venlafaxine 37.5 mg capsule,extended release 24 hr 37.5 mg PO DAILY Mental Health 08/28/23
vit C 250 mg-vit E 90 mg-zinc 40 mg-copper 1 [id number] capsule (PreserVision AREDS-2) 1 tab PO DAILY Supplement 08/28/23
amiodarone 200 mg tablet 200 mg PO DAILY Arrhythmia 01/14/24
hydrocodone 10 mg-acetaminophen 325 mg tablet 1 tab PO Q4HPRN PRN severe pain 01/14/24
magnesium hydroxide 400 mg/5 mL oral suspension (Milk of Magnesia) 2,400 mg PO DAILYPRN PRN constipation 01/14/24
umeclidinium 62.5 mcg/actuation blister powder for inhalation (Incruse Ellipta) 1 inh inhalation R DAILY Lung/Breathing Issues 01/14/24
famotidine 20 mg tablet 20 mg PO QPM Gastrointestinal issue #0 tabs 01/17/24
furosemide 40 mg tablet 40 mg PO DAILY Fluid retention/Swelling #30 tabs 01/17/24
metoprolol succinate 25 mg tablet,extended release 24 hr 25 mg PO DAILY Arrhythmia #30 tabs 01/17/24
polyethylene glycol 3350 17 gram oral powder packet (Miralax) 17 g PO DAILY Constipation #30 ea 01/17/24
sennosides 8.6 mg capsule (senna) 8.6 mg PO BID Constipation #60 caps 01/17/24
Home Medication Changes
losartan stopped
Metoprolol and Lasix doses changed.
Pending Results: No
== END 2024-01-17 17:39 | disposition home health service (06) | DRG 291 ==
LOC: 4 WEST ACU 15:46
PROVIDERS: Student in an Organized Health Care Education/Training Program; ADMITTING PHYSICIAN Hospitalist; CONSULT PHYSICIAN Internal Medicine Cardiovascular Disease; CONSULT PHYSICIAN Internal Medicine Critical Care Medicine; EMERGENCY PHYSICIAN Student in an Organized Health Care Education/Training Program; FAMILY PHYSICIAN Family Medicine
PROC: 5A09357 Assistance with Respiratory Ventilation, Less than 24 Consecutive Hours, Continuous Positive Airway Pressure (ICD-10-PCS; 2024-01-14)
DX: I11.0 Hypertensive heart disease with heart failure (principal); I50.33 Acute on chronic diastolic (congestive) heart failure; J96.01 Acute respiratory failure with hypoxia; J96.02 Acute respiratory failure with hypercapnia; N17.9 Acute kidney failure, unspecified; J84.9 Interstitial pulmonary disease, unspecified; E87.29 Other acidosis; I48.19 Other persistent atrial fibrillation; I48.4 Atypical atrial flutter; I08.0 Rheumatic disorders of both mitral and aortic valves; J42 Unspecified chronic bronchitis; F32.A Depression, unspecified; J43.9 Emphysema, unspecified; E04.1 Nontoxic single thyroid nodule; L89.311 Pressure ulcer of right buttock, stage 1; L89.321 Pressure ulcer of left buttock, stage 1; Z79.01 Long term (current) use of anticoagulants; G47.33 Obstructive sleep apnea (adult) (pediatric); E78.00 Pure hypercholesterolemia, unspecified; M19.90 Unspecified osteoarthritis, unspecified site; H35.30 Unspecified macular degeneration; K59.00 Constipation, unspecified; R79.89 Other specified abnormal findings of blood chemistry; Z96.643 Presence of artificial hip joint, bilateral; Z96.653 Presence of artificial knee joint, bilateral; Z79.899 Other long term (current) drug therapy; Z87.891 Personal history of nicotine dependence; Z87.09 Personal history of other diseases of the respiratory system; Z98.1 Arthrodesis status; Z82.5 Family history of asthma and other chronic lower respiratory diseases
CPT/HCPCS: 93308; 36600; 71045; 71046; 80048; 80053; 82805; 83735; 83880; 84145; 84443; 84484; 85025; 85027; 87811; 92610; 93005; 93321; 93325; 94640; 94660; 94760; 97163; 97166; 97530; 97535; 99285

== ENCOUNTER → 2024-01-27 11:15 | Outpatient (REF) | payer MEDICARE, OTHER, SELFPAY ==
[2024-01-27 18:25] LABS: Blood Urea Nitrogen 35 mg/dl (7-17); Calcium 9.8 mg/dl (8.4-10.2); Carbon Dioxide 36 mmol/L (22-30); Chloride 93 mmol/L (98-107); Glucose 166 mg/dl (70-99); Potassium 4.1 mmol/L (3.5-5.1); Sodium 140 mmol/L (135-145); eGFR 44.08
== END ==
LOC: CLAB 11:15
PROVIDERS: ATTENDING PHYSICIAN Family Medicine
DX: I50.31 Acute diastolic (congestive) heart failure (principal)
CPT/HCPCS: 80048

== ENCOUNTER → 2024-02-09 15:07 | Outpatient (REF) | payer MEDICARE, OTHER, SELFPAY ==
[2024-02-09 18:26] LABS: Blood Urea Nitrogen 43 mg/dl (7-17); Calcium 9.8 mg/dl (8.4-10.2); Carbon Dioxide 34 mmol/L (22-30); Chloride 94 mmol/L (98-107); Glucose 88 mg/dl (70-99); Potassium 4.1 mmol/L (3.5-5.1); Sodium 138 mmol/L (135-145); eGFR 33.73
== END ==
LOC: CLAB 15:07
PROVIDERS: ATTENDING PHYSICIAN Physician Assistant Medical
DX: I50.30 Unspecified diastolic (congestive) heart failure (principal)
CPT/HCPCS: 80048

== ENCOUNTER → 2024-02-20 15:20 | Outpatient (REF) | payer MEDICARE, OTHER, SELFPAY | LOC: HWRAD 15:20 | PROVIDERS: ATTENDING PHYSICIAN Internal Medicine Critical Care Medicine; FAMILY PHYSICIAN Family Medicine | DX: R09.02 Hypoxemia (principal) | CPT/HCPCS: 71046 ==

== ENCOUNTER → 2024-02-23 16:51 | Outpatient (REF) | payer MEDICARE, OTHER, SELFPAY ==
[2024-02-23 18:04] LABS: Blood Urea Nitrogen 34 mg/dl (7-17); Calcium 9.5 mg/dl (8.4-10.2); Carbon Dioxide 32 mmol/L (22-30); Chloride 99 mmol/L (98-107); Glucose 191 mg/dl (70-99); Potassium 4.1 mmol/L (3.5-5.1); Sodium 143 mmol/L (135-145); eGFR 44.08
== END ==
LOC: CLAB 16:51
PROVIDERS: ATTENDING PHYSICIAN Internal Medicine Cardiovascular Disease
DX: I50.31 Acute diastolic (congestive) heart failure (principal)
CPT/HCPCS: 36415; 80048

== ENCOUNTER → 2024-04-12 12:42 | Outpatient (REF) | payer MEDICARE, OTHER, SELFPAY ==
[2024-04-12 15:54] LABS: ALT (SGPT) 23 U/L (0-35); AST (SGOT) 39 U/L (14-36); Albumin 4.6 g/dl (3.5-5.0); Alkaline Phosphatase 64 U/L (38-126); Blood Urea Nitrogen 25 mg/dl (7-17); Calcium 9.6 mg/dl (8.4-10.2); Carbon Dioxide 32 mmol/L (22-30); Chloride 97 mmol/L (98-107); Glucose 86 mg/dl (70-99); Iron 121 ug/dl (37-170); Sodium 142 mmol/L (135-145); Total Bilirubin 0.7 mg/dl (0.2-1.3); Total Cholesterol 207 mg/dl (50-199); Total Protein 7.2 g/dl (6.3-8.2); Triglyceride 91 mg/dl (10-149); Very Low Density Lipoprotein 18 mg/dl (0-30); eGFR 54.87
[2024-04-12 16:03] LABS: HDL Cholesterol 123 mg/dl; LDL Cholesterol, Calculated 66 mg/dl; Percent Saturation 38 % (20-50); Total Iron Binding Capacity 316 ug/dl (265-497)
[2024-04-12 16:20] LABS: % Basophils 0.8 % (0-2); % Eosinophils 4.9 % (0-6); % Immature Granulocytes 0.3 % (0-0.5); % Lymphocytes 26.4 % (20.5-51.1); % Monocytes 11.5 % (1.7-9.3); % Neutrophils 56.1 % (42.2-75.2); Absolute Basophils 0.1 10^3/uL (0-0.2); Absolute Eosinophils 0.3 10^3/uL (0-0.7); Absolute Lymphocytes 1.6 10^3/uL (1.2-3.4); Absolute Monocytes 0.7 10^3/uL (0.1-0.6); Absolute Neutrophils 3.3 10^3/uL (1.4-6.5); Hematocrit 39.9 % (37.0-47.0); Hemoglobin 12.7 g/dL (12.0-16.0); Mean Corp Hgb Conc. 31.8 g/dL (33.0-37.0); Mean Corpuscular Hgb 33.2 pg (27.0-31.0); Mean Corpuscular Volume 104.2 fL (81.0-99.0); Mean Platelet Volume 10.9 fL (7.4-10.4); Nucleated Red Blood Cells % 0 %; Platelet Count 138 10^3/uL (130-400); Red Blood Cell Count 3.83 10^6/uL (4.20-5.40); Red Cell Dist. Width 13.2 % (11.5-14.5); White Blood Cell Count 5.9 10^3/uL (4.8-10.8)
[2024-04-12 16:25] LABS: Ferritin 31.2 ng/ml (11.1-264.0)
[2024-04-14 14:14] LABS: TSH Reflex To Free T4 2.44 uIU/ml (0.47-4.68)
[2024-04-14 14:33] LABS: Vitamin B12 443 pg/ml (239-931)
== END ==
LOC: HWLAB 12:42
PROVIDERS: ATTENDING PHYSICIAN Family Medicine
DX: I10 Essential (primary) hypertension (principal); I48.19 Other persistent atrial fibrillation; I48.91 Unspecified atrial fibrillation; E78.00 Pure hypercholesterolemia, unspecified
CPT/HCPCS: 36415; 80053; 80061; 82607; 82728; 83540; 83550; 84443; 85025

== ENCOUNTER → 2024-10-11 11:40 | Outpatient (REF) | payer MEDICARE, OTHER, SELFPAY ==
[2024-10-11 16:14] LABS: ALT (SGPT) 24 U/L (0-35); AST (SGOT) 37 U/L (14-36); Albumin 4.7 g/dl (3.5-5.0); Alkaline Phosphatase 66 U/L (38-126); Blood Urea Nitrogen 30 mg/dl (7-17); Calcium 9.7 mg/dl (8.4-10.2); Carbon Dioxide 32 mmol/L (22-30); Chloride 101 mmol/L (98-107); Glucose 91 mg/dl (70-99); HDL Cholesterol 108 mg/dl; Iron 129 ug/dl (37-170); LDL Cholesterol, Calculated 84 mg/dl; Sodium 138 mmol/L (135-145); Total Bilirubin 0.8 mg/dl (0.2-1.3); Total Cholesterol 208 mg/dl (50-199); Total Protein 7.3 g/dl (6.3-8.2); Triglyceride 82 mg/dl (10-149); Very Low Density Lipoprotein 16 mg/dl (0-30); eGFR 48.94
[2024-10-11 16:23] LABS: Percent Saturation 43 % (20-50); Total Iron Binding Capacity 298 ug/dl (265-497)
[2024-10-11 16:24] LABS: % Basophils 0.7 % (0-2); % Eosinophils 3.6 % (0-6); % Immature Granulocytes 0.4 % (0-0.5); % Lymphocytes 26.3 % (20.5-51.1); % Monocytes 10.8 % (1.7-9.3); % Neutrophils 58.2 % (42.2-75.2); Absolute Eosinophils 0.2 10^3/uL (0-0.7); Absolute Lymphocytes 1.5 10^3/uL (1.2-3.4); Absolute Monocytes 0.6 10^3/uL (0.1-0.6); Absolute Neutrophils 3.3 10^3/uL (1.4-6.5); Hematocrit 41.2 % (37.0-47.0); Hemoglobin 13.2 g/dL (12.0-16.0); Mean Corpuscular Hgb 33.5 pg (27.0-31.0); Mean Corpuscular Volume 104.6 fL (81.0-99.0); Mean Platelet Volume 11.2 fL (7.4-10.4); Nucleated Red Blood Cells % 0 %; Platelet Count 142 10^3/uL (130-400); Red Blood Cell Count 3.94 10^6/uL (4.20-5.40); Red Cell Dist. Width 13.1 % (11.5-14.5); White Blood Cell Count 5.6 10^3/uL (4.8-10.8)
[2024-10-11 16:45] LABS: TSH Reflex To Free T4 2.79 uIU/ml (0.47-4.68)
[2024-10-11 16:49] LABS: Ferritin 31.9 ng/ml (11.1-264.0)
[2024-10-12 09:33] LABS: Glycohemoglobin (HgbA1c) 5.2 % (4.0-5.6)
== END ==
LOC: HWLAB 11:40
PROVIDERS: ATTENDING PHYSICIAN Family Medicine
DX: Z79.899 Other long term (current) drug therapy (principal); E61.1 Iron deficiency; I10 Essential (primary) hypertension; I50.30 Unspecified diastolic (congestive) heart failure; J30.2 Other seasonal allergic rhinitis
CPT/HCPCS: 36415; 80053; 80061; 82728; 83036; 83540; 83550; 84443; 85025

== ENCOUNTER → 2025-04-06 13:53 | Outpatient (REF) | payer MEDICARE, OTHER, SELFPAY | LOC: HWRCS 13:53 | PROVIDERS: ATTENDING PHYSICIAN Internal Medicine Cardiovascular Disease; FAMILY PHYSICIAN Family Medicine | DX: I48.0 Paroxysmal atrial fibrillation (principal); I48.4 Atypical atrial flutter | CPT/HCPCS: 93306 ==